=== PATIENT | male | born 1975 | race Caucasian/White ===

== ENCOUNTER 2017-08-14 19:19 | Emergency (ER) | payer MEDICAID ==
[2017-08-14 19:46] VITALS: BP 130/71
[2017-08-14] MEDS ORDERED: diphenhydrAMINE 50 MG/ML SDV ONE (20:03)
--- NOTE | 2017-08-14 21:24 | EDM.PDOC ---
ED HPI GENERAL MEDICAL PROBLEM - General Chief Complaint: Upper Extremity Injury/Pain Stated Complaint: laceration to palm Time Seen by Provider: 08/14/17 19:44 Source of Information: Reports: Patient History Limitations: Reports: No Limitations - History of Present Illness INITIAL COMMENTS - FREE TEXT/NARRATIVE: Pt. presents to ER with complaints of laceration to palm of his L hand. Pt. states that he was doing woodworking and cut it with a razorblade accidentally. Pt. states that his tetanus is UTD. Denies injury other what is isolated to L hand. Onset: Today Onset Date: 08/14/17 Onset Time: 19:00 Location: Reports: Upper Extremity, Left - Related Data Allergies Allergy/AdvReac Type Severity Reaction Status Date / Time lidocaine Allergy Rash Verified 08/14/17 19:40 Home Meds: Home Meds Magnesium Oxide [Mag-Oxide] 400 mg PO BIDAC #4 tablet 07/03/13 [Rx] Echinacea 500 mg PO DAILY 11/23/13 [History] FLUoxetine [PROzac] 20 mg PO DAILY 11/23/13 [History] Gabapentin [Gabapentin] 400 mg PO TID 11/23/13 [History] Gabapentin [Neurontin] 800 mg PO TID #42 tab 11/23/13 [Rx] Glucosamine/Msm/Chondroitin A [Ghqhpvcdoog-Nbfemheej-TLZ Cplt] 1 each PO TID 12/02 [History] Indomethacin [Indocin] 50 mg PO TID PRN 11/23/13 [History] LORazepam [Ativan] 1 mg PO Q6H PRN 11/23/13 [History] Multivitamin [Multi Vitamin Daily] 1 each PO DAILY 11/23/13 [History] Potassium Gluconate [Potassium] 99 mg PO DAILY 11/23/13 [History] traZODone HCl [Trazodone HCl] 200 mg PO BEDTIME 11/23/13 [History] Past Medical History Cardiovascular History: Reports: Hypertension Musculoskeletal History: Reports: Gout Psychiatric History: Reports: ADHD Other Psychiatric History: ETOH addiction Social & Family History - Tobacco Use Smoking Status *Q: Current Every Day Smoker Years of Tobacco use: 25 Packs/Tins Daily: 0.7 - Alcohol Use Days Per Week of Alcohol Use: 0 Number of Drinks Per Day: 12 Total Drinks Per Week: 0 - Recreational Drug Use Recreational Drug Use: No Review of Systems - Review of Systems Review Of Systems: See Below Musculoskeletal: Reports: Hand Pain Skin: Reports: Wound Neurological: Denies: Paresthesia ED EXAM, GENERAL - Physical Exam Exam: See Below Exam Limited By: No Limitations General Appearance: Alert Extremities: Other (2.75 cm laceration to L thenar emminence.) ED TRAUMA EXTREMITY PROCEDURES - Laceration/Wound Repair Left Hand Lac/Wound Length In cm: 2.7 Appearance: Linear Distal NVT: Neuro & Vascular Intact Anesthetic Type: Local Local Anesthesia - Lidocaine (Xylocaine): Other (benadryl 100mg around the laceration) Local Anesthetic Volume: 2cc Skin Prep: Chlorhexidine (Hibiciens), Saline Exploration/Debridement/Repair: Wound Explored Closed With: Sutures Suture Size: 4-0 # of Sutures: 4 Suture Type: Nylon Sterile Dressing Applied: Nurse Tetanus Status Addressed: Yes Course - Vital Signs Last Recorded V/S: Last Vital Signs Temp 36.5 C 08/14/17 19:44 Pulse 96 08/14/17 19:44 Resp 16 08/14/17 19:44 BP 130/71 08/14/17 19:44 Pulse Ox 96 08/14/17 19:44 - Orders/Labs/Meds Meds: Medications Discontinued Medications Generic Name Dose Route Start Last Admin Trade Name Vitor PRN Reason Stop Dose Admin Diphenhydramine HCl 100 mg 08/14/17 20:03 08/14/17 20:09 Benadryl .XX 08/14/17 20:04 100 mg ONETIME ONE Administration Departure - Departure Time of Disposition: 20:28 Disposition: Home, Self-Care 01 Condition: Good Clinical Impression: Laceration - Discharge Information Instructions: Laceration Care, Adult Referrals: Robel Taylor MD [Primary Care Provider] - Forms: ED Department Discharge Additional Instructions: Sutures out in 10-12 days. Keep dry for 24 hours. Keep open to air as much as possible. If you think the area is going to get dirty, keep covered. Return if redness, swelling, or discharge from the area.
== END 2017-08-14 20:33 | disposition home or self-care (01) ==
LOC: VM.ED 19:19
DX: S61.412A Laceration without foreign body of left hand, initial encounter (principal); I10 Essential (primary) hypertension; Z79.899 Other long term (current) drug therapy; F17.210 Nicotine dependence, cigarettes, uncomplicated; Z88.4 Allergy status to anesthetic agent; W26.8XXA Contact with other sharp object(s), not elsewhere classified, initial encounter
CPT/HCPCS: 12001; 12002; 99283; J1200

== ENCOUNTER 2017-12-29 12:13 | Observation (INO) | payer MEDICAID ==
[2017-12-29] MEDS ORDERED: Sodium Chloride 0.9% 1,000 ML IV ONE (12:28)
[2017-12-29 13:14] LABS: CHLORIDE,CL 99 mmol/L (98-107); SODIUM,NA 135 mmol/L (136-145)
[2017-12-29] MEDS: Lactated Ringers 1,000 ML IV SCH (19:31)
[2017-12-29] MEDS: LORazepam 1 MG Tab PO PRN (20:44)
[2017-12-29] MEDS: Multivitamin, Stress Formula with Zinc Tab PO SCH (20:44)
[2017-12-30] MEDS: LORazepam 1 MG Tab PO PRN (02:44)
[2017-12-30] MEDS: Lactated Ringers 1,000 ML IV SCH (05:30)
--- NOTE | 2017-12-30 06:30 | EDM.PDOC ---
ED HPI GENERAL MEDICAL PROBLEM - General Chief Complaint: General Stated Complaint: ER VISIT Time Seen by Provider: 12/29/17 12:13 Source of Information: Reports: Patient History Limitations: Reports: No Limitations - History of Present Illness INITIAL COMMENTS - FREE TEXT/NARRATIVE: Pt. is going through a breakup with his girlfriend. For the past several weeks, he has been living in either hotels or his vehicle. He has been staying at his parent's home since Saturday, and the pt. disappeared from the residence. Law enforcement was contacted. Pt. apparently wandered away from his parents home. He came across a santoro who contacted law enforcement. Pt. was cooperative. He was brought to the ER for evaluation. He was acutely confused and unable to recall the events of the day. He states that he has been binge drinking for the past 4 days. He has a longstanding history of alcoholism and he states he just recently relapsed. He was last seen in the clinic on . Pt. was compliant at that time, but stopped taking all of his medications in Aug. He was in possession of a small amount of Vyvanse, lorazepam, and lexapro. He is not sure if he took these medications or not yesterday (he is no longer prescribed lexapro). He states that he did fall on Saturday sustaining an abrasion to his L lateral face. Onset Date: 12/29/17 Location: Reports: Generalized - Related Data Allergies Allergy/AdvReac Type Severity Reaction Status Date / Time bee venom protein (honey bee) Allergy Anaphylactic Verified 12/29/17 12:41 Shock lidocaine Allergy Rash Verified 12/29/17 12:41 Home Meds: Home Meds Glucosamine/Msm/Chondroitin A [Ecjdanoccal-Fckisdhwt-USE Cplt] 1 each PO TID 12/02 [History] LORazepam [Ativan] 1 mg PO Q6H PRN 11/23/13 [History] Multivitamin [Multi Vitamin Daily] 1 each PO DAILY 11/23/13 [History] B Complex With Vitamin C [Vitamin B-Complex & C] 1 each PO DAILY 12/29/17 [ History] EPINEPHrine [Epipen] 0.3 mg IM ASDIRECTED PRN 12/29/17 [History] Folic Acid 1 mg PO DAILY 12/29/17 [History] Magnesium Chloride [Mag-64] 64 mg PO DAILY 12/29/17 [History] OLANZapine [Zyprexa] 15 mg PO BEDTIME 12/29/17 [History] rOPINIRole HCl [Requip] 0.25 mg PO BEDTIME 12/29/17 [History] Past Medical History Cardiovascular History: Reports: Hypertension Gastrointestinal History: Reports: Other (See Below) Other Gastrointestinal History: fatty liver Musculoskeletal History: Reports: Gout, Other (See Below) Other Musculoskeletal History: restless legs, pain of left shoulder Neurological History: Reports: Seizure, Other (See Below) Other Neuro History: mild cognitive impairment, neuroma, durg induced seizure, epilepsy, facial tic, neuroma Psychiatric History: Reports: ADD, Addiction Other Psychiatric History: ETOH addiction, insomnia Endocrine/Metabolic History: Reports: Other (See Below) Other Endocrine/Metabolic History: hyperglycemia Hematologic History: Reports: Anemia, Hemochromatosis, Other (See Below) Other Hematologic History: leukocytopenia - Past Surgical History Cardiovascular Surgical History: Reports: None Musculoskeletal Surgical History: Reports: None Social & Family History - Family History Family Medical History: Noncontributory - Tobacco Use Smoking Status *Q: Current Every Day Smoker Years of Tobacco use: 15 Packs/Tins Daily: 0.5 Used Tobacco, but Quit: No - Caffeine Use Caffeine Use: Reports: Coffee - Alcohol Use Days Per Week of Alcohol Use: 5 Number of Drinks Per Day: 4 Total Drinks Per Week: 20 - Recreational Drug Use Recreational Drug Use: No ED ROS GENERAL - Review of Systems Review Of Systems: See Below Constitutional: Reports: No Symptoms HEENT: Reports: No Symptoms Respiratory: Reports: No Symptoms Cardiovascular: Reports: No Symptoms Endocrine: Reports: No Symptoms GI/Abdominal: Reports: No Symptoms : Reports: No Symptoms Musculoskeletal: Reports: No Symptoms Skin: Reports: No Symptoms Neurological: Reports: Confusion Psychiatric: Reports: Agitation, Confusion Hematologic/Lymphatic: Reports: No Symptoms Immunologic: Reports: No Symptoms ED EXAM, GENERAL - Physical Exam Exam: See Below Exam Limited By: No Limitations General Appearance: Alert, WD/WN, No Apparent Distress Eye Exam: Bilateral Eye: EOMI, Normal Fundi, Normal Inspection, PERRL Ears: Normal External Exam, Normal Canal, Hearing Grossly Normal, Normal TMs Ear Exam: Bilateral Ear: Auricle Normal, Canal Normal, TM normal Nose: Normal Inspection, Normal Mucosa, No Blood Throat/Mouth: Normal Inspection, Normal Lips, Normal Teeth, Normal Gums, Normal Oropharynx, Normal Voice, No Airway Compromise Head: Atraumatic, Normocephalic, Other (abrasion from fall to L lateral orbital area) Neck: Normal Inspection, Supple, Non-Tender, Full Range of Motion Respiratory/Chest: No Respiratory Distress, Lungs Clear, Normal Breath Sounds, No Accessory Muscle Use, Chest Non-Tender Cardiovascular: Normal Peripheral Pulses, Regular Rate, Rhythm, No Edema, No Gallop, No JVD, No Murmur, No Rub Peripheral Pulses: 4+: Radial (L), Radial (R) GI/Abdominal: Normal Bowel Sounds, Soft, Non-Tender, No Organomegaly, No Distention, No Abnormal Bruit, No Mass (Male) Exam: Deferred Rectal (Males) Exam: Deferred Back Exam: Normal Inspection, Full Range of Motion Extremities: Normal Range of Motion, Non-Tender, No Pedal Edema, Normal Capillary Refill, Other (numerous healing lacerations to lower legs, pt. states from accidental glass cut.) Neurological: CN II-XII Intact, Normal Gait, Normal Reflexes, No Motor/Sensory Deficits, Confused, Disoriented Psychiatric: Anxious Skin Exam: Warm, Dry, Intact, Normal Color, No Rash Lymphatic: No Adenopathy EKG INTERPRETATION Rhythm: NSR [place]: Normal P-Wave: Present QRS: Normal ST-T: Normal QT: Normal Course - Vital Signs Last Recorded V/S: Last Vital Signs Temp 37.1 C 12/30/17 05:34 Pulse 75 12/30/17 05:34 Resp 18 12/30/17 05:34 BP 124/77 12/30/17 05:34 Pulse Ox 97 12/30/17 05:34 - Orders/Labs/Meds Orders: Active Orders 24 hr Category Date Time Status Patient Status [ADT] Routine ADT 12/29/17 14:04 Active Head wo Cont [CT] Stat Exams 12/29/17 12:23 Taken CULTURE BLOOD [BC] Stat Lab 12/29/17 13:30 Received CULTURE BLOOD [BC] Stat Lab 12/29/17 13:30 Received DRUG SCREEN, URINE [URCHEM] Stat Lab 12/29/17 12:59 Ordered MISC TEST Stat Lab 12/29/17 12:59 Received Blood Culture x2 Reflex Set [OM.PC] Stat Oth 12/29/17 12:25 Ordered Medication Orders Folic Acid (Folic Acid) 1 mg PO DAILY [facility] Lactated Ringer's (Ringers, Lactated) 1,000 mls @ 100 mls/hr IV ASDIRECTED TIM Last Admin: 12/30/17 05:30 Dose: 100 mls/hr Infusion: 12/30/17 05:30 Dose: 100 mls/hr Admin: 12/29/17 19:31 Dose: 100 mls/hr Lorazepam (Ativan) 1 mg PO Q6H PRN PRN Reason: Anxiety Last Admin: 12/30/17 02:44 Dose: 1 mg Admin: 12/29/17 20:44 Dose: 1 mg Magnesium Chloride (Mag-64) 64 mg PO DAILY [facility] Non-Formulary Medication (Glucosamine/Msm/Chondroitin A [Glucosamine-Chondroit- Msm Cplt]) 1 each PO TID TIM Vitamin B Complex (Balanced B-50) 1 each PO DAILY TIM Vitamin B Complex/Vit C/Vit E/Zinc (Stress Formula With Zinc) 1 tab PO DAILY [facility] Last Admin: 12/29/17 20:44 Dose: 1 tab Labs: Laboratory Tests 12/29/17 12/29/17 12/29/17 Range/Units 12:35 12:35 12:35 WBC 9.9 (4.0-10.0) x10^3/uL RBC 4.41 L (4.5-6.0) x10^6/uL Hgb 15.3 D (14.0-18.0) g/dL Hct 43.6 (40.0-52.0) % MCV 98.9 H D (78.0-93.0) fL MCH 34.7 H (26.0-32.0) pg MCHC 35.1 (32.0-36.0) g/dL RDW Coeff of [place] 13.0 (10.0-15.0) % Plt Count 184 (130-400) x10^3/uL Neut % (Auto) 80.9 H (50.0-80.0) % Lymph % (Auto) 10.9 L (25.0-50.0) % [place] % (Auto) 8.0 (2.0-11.0) % Eos % (Auto) 0.1 (0.0-4.0) % Baso % (Auto) 0.1 L (0.2-1.2) % PT 10.2 (9.6-11.4) SEC INR 1.0 L (2.0-3.5) Sodium 135 L (136-145) mmol/L Potassium 4.1 (3.5-5.1) mmol/L Chloride 99 (98-107) mmol/L Carbon Dioxide 23 (21-32) mmol/L Anion Gap 17.1 (10-20) mmol/L BUN 26 H (7-18) mg/dL Creatinine 1.3 (0.70-1.30) mg/dL Est Cr Clr Drug Dosing TNP Estimated GFR (MDRD) > 60 Glucose 82 (74-106) mg/dL Lactic Acid (0.4-2.0) mmol/L Calcium 9.3 (8.5-10.1) mg/dL Corrected Calcium 8.58 (8.5-10.1) mg/dL Phosphorus 4.6 (2.6-4.7) mg/dL Magnesium 1.8 (1.8-2.4) mg/dL Total Bilirubin 2.5 H (0.2-1.0) mg/dL AST 486 H (15-37) U/L ALT 208 H (16-63) U/L Alkaline Phosphatase 145 H (46-116) U/L Troponin I < 0.017 (<=0.056) ng/mL C-Reactive Protein 3.4 H (<=0.9) mg/dL Total Protein 8.6 H (6.4-8.2) g/dL Albumin 4.9 (3.4-5.0) g/dL Globulin 3.7 Albumin/Globulin Ratio 1.32 TSH, Ultra Sensitive 2.625 (0.358-3.74) uIU/mL Urine Color (YELLOW) Urine Appearance (CLEAR) Urine pH (5.0-8.0) Ur Specific [place] Urine Protein (NEGATIVE) mg/dL Urine Glucose (UA) (NEGATIVE) mg/dL Urine Ketones (NEGATIVE) mg/dL Urine Occult Blood (NEGATIVE) Urine Nitrite (NEGATIVE) Urine Bilirubin (NEGATIVE) Urine Urobilinogen (0.2) EU/dL Ur Leukocyte Esterase (NEGATIVE) Urine RBC (NOT SEEN) /HPF Urine WBC (NOT SEEN) /HPF Ur Squamous Epith Cells (NEGATIVE) /HPF Amorphous Sediment Urine Bacteria (NEGATIVE) /HPF Hyaline Casts (NEGATIVE) /HPF Urine Mucus (NEGATIVE) /LPF Urine Opiates Screen (NEAGTIVE) Ur Buprenorphine Scrn (NEGATIVE) Ur Oxycodone Screen (NEGATIVE) Urine Methadone Screen (NEGATIVE) Ur Barbiturates Screen (NEGATIVE) Ur Tricyclics Screen (NEGATIVE) Ur Amphetamine Screen (NEGATIVE) U Methamphetamines Scrn (NEGATIVE) Urine MDMA Screen (NEGATIVE) U Benzodiazepines Scrn (NEGATIVE) U Cocaine Metab Screen (NEGATIVE) U Marijuana (THC) Screen (NEGATIVE) Ethyl Alcohol (0-3) mg/dL 12/29/17 12/29/17 12/29/17 Range/Units 12:35 12:35 12:59 WBC (4.0-10.0) x10^3/uL RBC (4.5-6.0) x10^6/uL Hgb (14.0-18.0) g/dL Hct (40.0-52.0) % MCV (78.0-93.0) fL MCH (26.0-32.0) pg MCHC (32.0-36.0) g/dL RDW Coeff of [place] (10.0-15.0) % Plt Count (130-400) x10^3/uL Neut % (Auto) (50.0-80.0) % Lymph % (Auto) (25.0-50.0) % [place] % (Auto) (2.0-11.0) % Eos % (Auto) (0.0-4.0) % Baso % (Auto) (0.2-1.2) % PT (9.6-11.4) SEC INR (2.0-3.5) Sodium (136-145) mmol/L Potassium (3.5-5.1) mmol/L Chloride (98-107) mmol/L Carbon Dioxide (21-32) mmol/L Anion Gap (10-20) mmol/L BUN (7-18) mg/dL Creatinine (0.70-1.30) mg/dL Est Cr Clr Drug Dosing Estimated GFR (MDRD) Glucose (74-106) mg/dL Lactic Acid 1.4 (0.4-2.0) mmol/L Calcium (8.5-10.1) mg/dL Corrected Calcium (8.5-10.1) mg/dL Phosphorus (2.6-4.7) mg/dL Magnesium (1.8-2.4) mg/dL Total Bilirubin (0.2-1.0) mg/dL AST (15-37) U/L ALT (16-63) U/L Alkaline Phosphatase (46-116) U/L Troponin I (<=0.056) ng/mL C-Reactive Protein (<=0.9) mg/dL Total Protein (6.4-8.2) g/dL Albumin (3.4-5.0) g/dL Globulin Albumin/Globulin Ratio TSH, Ultra Sensitive (0.358-3.74) uIU/mL Urine Color Dark yellow H (YELLOW) Urine Appearance Slightly cloudy H (CLEAR) Urine pH 5.5 (5.0-8.0) Ur Specific [place] 1.010 Urine Protein 30 H (NEGATIVE) mg/dL Urine Glucose (UA) Negative (NEGATIVE) mg/dL Urine Ketones Trace H (NEGATIVE) mg/dL Urine Occult Blood Moderate H (NEGATIVE) Urine Nitrite Negative (NEGATIVE) Urine Bilirubin Small H (NEGATIVE) Urine Urobilinogen 0.2 (0.2) EU/dL Ur Leukocyte Esterase Negative (NEGATIVE) Urine RBC 0-5 (NOT SEEN) /HPF Urine WBC 0-5 (NOT SEEN) /HPF Ur Squamous Epith Cells Not seen (NEGATIVE) /HPF Amorphous Sediment Few Urine Bacteria Few H (NEGATIVE) /HPF Hyaline Casts Moderate H (NEGATIVE) /HPF Urine Mucus Moderate H (NEGATIVE) /LPF Urine Opiates Screen (NEAGTIVE) Ur Buprenorphine Scrn (NEGATIVE) Ur Oxycodone Screen (NEGATIVE) Urine Methadone Screen (NEGATIVE) Ur Barbiturates Screen (NEGATIVE) Ur Tricyclics Screen (NEGATIVE) Ur Amphetamine Screen (NEGATIVE) U Methamphetamines Scrn (NEGATIVE) Urine MDMA Screen (NEGATIVE) U Benzodiazepines Scrn (NEGATIVE) U Cocaine Metab Screen (NEGATIVE) U Marijuana (THC) Screen (NEGATIVE) Ethyl Alcohol < 3 (0-3) mg/dL 12/29/17 Range/Units 12:59 WBC (4.0-10.0) x10^3/uL RBC (4.5-6.0) x10^6/uL Hgb (14.0-18.0) g/dL Hct (40.0-52.0) % MCV (78.0-93.0) fL MCH (26.0-32.0) pg MCHC (32.0-36.0) g/dL RDW Coeff of [place] (10.0-15.0) % Plt Count (130-400) x10^3/uL Neut % (Auto) (50.0-80.0) % Lymph % (Auto) (25.0-50.0) % [place] % (Auto) (2.0-11.0) % Eos % (Auto) (0.0-4.0) % Baso % (Auto) (0.2-1.2) % PT (9.6-11.4) SEC INR (2.0-3.5) Sodium (136-145) mmol/L Potassium (3.5-5.1) mmol/L Chloride (98-107) mmol/L Carbon Dioxide (21-32) mmol/L Anion Gap (10-20) mmol/L BUN (7-18) mg/dL Creatinine (0.70-1.30) mg/dL Est Cr Clr Drug Dosing Estimated GFR (MDRD) Glucose (74-106) mg/dL Lactic Acid (0.4-2.0) mmol/L Calcium (8.5-10.1) mg/dL Corrected Calcium (8.5-10.1) mg/dL Phosphorus (2.6-4.7) mg/dL Magnesium (1.8-2.4) mg/dL Total Bilirubin (0.2-1.0) mg/dL AST (15-37) U/L ALT (16-63) U/L Alkaline Phosphatase (46-116) U/L Troponin I (<=0.056) ng/mL C-Reactive Protein (<=0.9) mg/dL Total Protein (6.4-8.2) g/dL Albumin (3.4-5.0) g/dL Globulin Albumin/Globulin Ratio TSH, Ultra Sensitive (0.358-3.74) uIU/mL Urine Color (YELLOW) Urine Appearance (CLEAR) Urine pH (5.0-8.0) Ur Specific [place] Urine Protein (NEGATIVE) mg/dL Urine Glucose (UA) (NEGATIVE) mg/dL Urine Ketones (NEGATIVE) mg/dL Urine Occult Blood (NEGATIVE) Urine Nitrite (NEGATIVE) Urine Bilirubin (NEGATIVE) Urine Urobilinogen (0.2) EU/dL Ur Leukocyte Esterase (NEGATIVE) Urine RBC (NOT SEEN) /HPF Urine WBC (NOT SEEN) /HPF Ur Squamous Epith Cells (NEGATIVE) /HPF Amorphous Sediment Urine Bacteria (NEGATIVE) /HPF Hyaline Casts (NEGATIVE) /HPF Urine Mucus (NEGATIVE) /LPF Urine Opiates Screen Negative (NEAGTIVE) Ur Buprenorphine Scrn Negative (NEGATIVE) Ur Oxycodone Screen Negative (NEGATIVE) Urine Methadone Screen Negative (NEGATIVE) Ur Barbiturates Screen Negative (NEGATIVE) Ur Tricyclics Screen Negative (NEGATIVE) Ur Amphetamine Screen Positive H (NEGATIVE) U Methamphetamines Scrn Negative (NEGATIVE) Urine MDMA Screen Negative (NEGATIVE) U Benzodiazepines Scrn Negative (NEGATIVE) U Cocaine Metab Screen Negative (NEGATIVE) U Marijuana (THC) Screen Negative (NEGATIVE) Ethyl Alcohol (0-3) mg/dL Meds: Medications Generic Name Dose Route Start Last Admin Trade Name Freq PRN Reason Stop Dose Admin Folic Acid 1 mg 12/30/17 08:00 Folic Acid PO DAILY TIM Lactated Ringer's 1,000 mls @ 100 mls/hr 12/29/17 19:00 12/30/17 05:30 Ringers, Lactated IV 100 mls/hr ASDIRECTED TIM Administration Lorazepam 1 mg 12/29/17 18:56 12/30/17 02:44 Ativan PO 1 mg Q6H PRN Administration Anxiety Magnesium Chloride 64 mg 12/30/17 08:00 Mag-64 PO DAILY [facility] Non-Formulary Medication 1 each 12/29/17 20:00 Glucosamine/Msm/Chondroitin A [Nsghtezoxmx-Clpdqbids-Cfj Cplt] PO TID [facility] Vitamin B Complex 1 each 12/30/17 08:00 Balanced B-50 PO DAILY [facility] Vitamin B Complex/Vit C/Vit E/Zinc 1 tab 12/29/17 19:30 12/29/17 20:44 Stress Formula With Zinc PO 1 tab DAILY [facility] Administration Discontinued Medications Generic Name Dose Route Start Last Admin Trade Name Freq PRN Reason Stop Dose Admin Sodium Chloride 1,000 mls @ 1,000 mls/hr 12/29/17 12:28 12/29/17 12:59 Normal Saline IV 12/29/17 13:27 1,000 mls/hr .BOLUS ONE Administration - Radiology Interpretation Free Text/Narrative:: CT brain is negative Departure - Departure Time of Disposition: 14:30 Disposition: Refer to Observation Clinical Impression: Dehydration - Discharge Information - My Orders Last 24 Hours: My Active Orders 12/29/17 12:23 Head wo Cont [CT] Stat 12/29/17 12:25 Blood Culture x2 Reflex Set [OM.PC] Stat 12/29/17 12:59 DRUG SCREEN, URINE [URCHEM] Stat MISC TEST Stat 12/29/17 13:30 CULTURE BLOOD [BC] Stat CULTURE BLOOD [BC] Stat 12/29/17 14:04 Patient Status [ADT] Routine - Assessment/Plan Last 24 Hours: My Active Orders 12/29/17 12:23 Head wo Cont [CT] Stat 12/29/17 12:25 Blood Culture x2 Reflex Set [OM.PC] Stat 12/29/17 12:59 DRUG SCREEN, URINE [URCHEM] Stat MISC TEST Stat 12/29/17 13:30 CULTURE BLOOD [BC] Stat CULTURE BLOOD [BC] Stat 12/29/17 14:04 Patient Status [ADT] Routine Assessment:: Acute delirium, dehydration Plan: We will admit the pt. observation. Will continue LR overnight. At this time, we will not restart his zyprexa or requip until his confusion is improved. It is likely the pt. has been drinking again for longer than 4 days. Will monitor for agitation. GGT, CMP, and CBC in the AM. He is a code level 1.
[2017-12-30 07:33] LABS: CHLORIDE,CL 103 mmol/L (98-107); SODIUM,NA 137 mmol/L (136-145)
[2017-12-30] MEDS: Multivitamin, Stress Formula with Zinc Tab PO SCH (07:52)
[2017-12-30] MEDS ORDERED: Folic Acid 1 MG Tab PO SCH (08:00)
[2017-12-30] MEDS ORDERED: Vitamin B Complex Tab.ER PO SCH (08:00)
[2017-12-30] MEDS ORDERED: Magnesium Chloride 64 MG Tab.ER PO SCH (08:00)
--- NOTE | 2017-12-30 08:41 | PCM.DCSUM1 ---
Discharge Summary - Hospital Course HPI Initial Comments: 42 yo male patient was admitted through the ED yesterday. [employer], pt. is going through a breakup with his girlfriend. For the past several weeks, he has been living in either hotels or his vehicle. He has been staying at his parent' s home since Saturday, and the pt. disappeared from the residence. Law enforcement was contacted. Pt. apparently wandered away from his parents home. He came across a santoro who contacted law enforcement. Pt. was cooperative. He was brought to the ER for evaluation. He was acutely confused and unable to recall the events of the day. He states that he has been binge drinking for the past 4 days. He has a longstanding history of alcoholism and he states he just recently relapsed. He was last seen in the clinic on . Pt. was compliant at that time, but stopped taking all of his medications in Aug. He was in possession of a small amount of Vyvanse, lorazepam, and lexapro. He is not sure if he took these medications or not yesterday (he is no longer prescribed lexapro). He states that he did fall on Saturday sustaining an abrasion to his L lateral face. - Discharge Data Discharge Date: 12/30/17 Discharge Disposition: Home, Self-Care 01 Condition: Good - Discharge Diagnosis/Problem(s) (1) Acute delirium SNOMED Code(s): 2095266, 1211697 ICD Code: R41.0 - DISORIENTATION, UNSPECIFIED Status: Resolved Priority: Medium Current Visit: Yes Onset Date: ~12/29/17 (2) Dehydration SNOMED Code(s): 47324199 ICD Code: E86.0 - DEHYDRATION Status: Resolved Priority: Medium Current Visit: Yes Onset Date: ~12/29/17 - Patient Summary/Data Operative Procedure(s) Performed: None Labs Pending at D/C: None Recommended Follow-up Testing/Procedures: Recheck Hepatic Panel with next PCP visit Planned Operative Procedure(s) after DC: None Hospital Course: Patient remained hemodynamically stable and afebrile. No issues with withdrawal symptoms. Patient rested comfortably. No issues with uncontrolled pain. Patient able to urinate and void ok. Tolerated diet fine. No issues with seizures. - Patient Instructions Diet: Heart Healthy Diet Activity: Rest and Relax Today Driving: Do Not Drive Showering/Bathing: May Shower Notify Provider of: Fever, Nausea and/or Vomiting - Discharge Plan Prescriptions/Med Rec: OLANZapine [Zyprexa] 1 tab PO BEDTIME 30 Days #30 tablet Home Medications: Home Meds Glucosamine/Msm/Chondroitin A [Lxoacbhdmjx-Oinbljafs-YFJ Cplt] 1 each PO TID 12/02 [History] LORazepam [Ativan] 1 mg PO Q6H PRN 11/23/13 [History] Multivitamin [Multi-Vitamin Daily] 1 each PO DAILY 11/23/13 [History] B Complex With Vitamin C [Vitamin B-Complex & C] 1 each PO DAILY 12/29/17 [ History] EPINEPHrine [Epipen 2-Jaime] 0.3 mg IM ASDIRECTED PRN 12/29/17 [History] Folic Acid 1 mg PO DAILY 12/29/17 [History] Magnesium Chloride [Mag-64] 64 mg PO DAILY 12/29/17 [History] rOPINIRole HCl [Requip] 0.25 mg PO BEDTIME 12/29/17 [History] OLANZapine [Zyprexa] 1 tab PO BEDTIME 30 Days #30 tablet 12/30/17 [Rx] Patient Handouts: Delirium, Rehydration, Adult Referrals: Robel Taylor MD [Primary Care Provider] - - Discharge Summary/Plan Comment DC Time >30 min.: No Discharge Summary/Plan Comment: Patient will be discharge home today. Patient needs a follow up with PCP in the next week as he has missed the last couple of appointments. No changes with home medications. Will give patient a refill of Zyprexa as he is out of this medication. STOP drinking alcohol. Needs outpatient CD program. - General Info Date of Service: 12/30/17 Subjective Update: Patient offers no specific complaints today. He states he is doing well. He would like to go home today. No issues with urination or BM's. Tolerating diet ok. No focal neurological complaints. Functional Status: Reports: Pain Controlled, Tolerating Diet, Ambulating, Urinating - Review of Systems General: Denies: Fever, Chills Pulmonary: Denies: Shortness of Breath, Cough Cardiovascular: Denies: Chest Pain, Palpitations Gastrointestinal: Denies: Abdominal Pain, Nausea, Vomiting Skin: Reports: No Symptoms Neurological: Reports: No Symptoms. Denies: Dizziness, Headache - Patient Data Vitals - Most Recent: Last Vital Signs Temp 37.1 C 12/30/17 05:34 Pulse 75 12/30/17 05:34 Resp 18 12/30/17 05:34 BP 124/77 12/30/17 05:34 Pulse Ox 97 12/30/17 05:34 Weight - Most Recent: 62.766 kg I&O - Last 24 hours: Intake & Output 12/29/17 12/30/17 12/30/17 22:59 06:59 14:59 Intake Total 2280 3460 Output Total 3150 Balance 2280 310 Lab Results - Last 24 hrs: Laboratory Results - last 24 hr 12/29/17 12/29/17 12/29/17 Range/Units 12:35 12:35 12:35 WBC 9.9 (4.0-10.0) x10^3/uL RBC 4.41 L (4.5-6.0) x10^6/uL Hgb 15.3 D (14.0-18.0) g/dL Hct 43.6 (40.0-52.0) % MCV 98.9 H D (78.0-93.0) fL MCH 34.7 H (26.0-32.0) pg MCHC 35.1 (32.0-36.0) g/dL RDW Coeff of Shaneka 13.0 (10.0-15.0) % Plt Count 184 (130-400) x10^3/uL Neut % (Auto) 80.9 H (50.0-80.0) % Lymph % (Auto) 10.9 L (25.0-50.0) % [place] % (Auto) 8.0 (2.0-11.0) % Eos % (Auto) 0.1 (0.0-4.0) % Baso % (Auto) 0.1 L (0.2-1.2) % PT 10.2 (9.6-11.4) SEC INR 1.0 L (2.0-3.5) Sodium 135 L (136-145) mmol/L Potassium 4.1 (3.5-5.1) mmol/L Chloride 99 (98-107) mmol/L Carbon Dioxide 23 (21-32) mmol/L Anion Gap 17.1 (10-20) mmol/L BUN 26 H (7-18) mg/dL Creatinine 1.3 (0.70-1.30) mg/dL Est Cr Clr Drug Dosing TNP Estimated GFR (MDRD) > 60 Glucose 82 (74-106) mg/dL Lactic Acid (0.4-2.0) mmol/L Calcium 9.3 (8.5-10.1) mg/dL Corrected Calcium 8.58 (8.5-10.1) mg/dL Phosphorus 4.6 (2.6-4.7) mg/dL Magnesium 1.8 (1.8-2.4) mg/dL Total Bilirubin 2.5 H (0.2-1.0) mg/dL AST 486 H (15-37) U/L ALT 208 H (16-63) U/L Alkaline Phosphatase 145 H (46-116) U/L Troponin I < 0.017 (<=0.056) ng/mL C-Reactive Protein 3.4 H (<=0.9) mg/dL Total Protein 8.6 H (6.4-8.2) g/dL Albumin 4.9 (3.4-5.0) g/dL Globulin 3.7 Albumin/Globulin Ratio 1.32 TSH, Ultra Sensitive 2.625 (0.358-3.74) uIU/mL Urine Color (YELLOW) Urine Appearance (CLEAR) Urine pH (5.0-8.0) Ur Specific [place] Urine Protein (NEGATIVE) mg/dL Urine Glucose (UA) (NEGATIVE) mg/dL Urine Ketones (NEGATIVE) mg/dL Urine Occult Blood (NEGATIVE) Urine Nitrite (NEGATIVE) Urine Bilirubin (NEGATIVE) Urine Urobilinogen (0.2) EU/dL Ur Leukocyte Esterase (NEGATIVE) Urine RBC (NOT SEEN) /HPF Urine WBC (NOT SEEN) /HPF Ur Squamous Epith Cells (NEGATIVE) /HPF Amorphous Sediment Urine Bacteria (NEGATIVE) /HPF Hyaline Casts (NEGATIVE) /HPF Urine Mucus (NEGATIVE) /LPF Urine Opiates Screen (NEAGTIVE) Ur Buprenorphine Scrn (NEGATIVE) Ur Oxycodone Screen (NEGATIVE) Urine Methadone Screen (NEGATIVE) Ur Barbiturates Screen (NEGATIVE) Ur Tricyclics Screen (NEGATIVE) Ur Amphetamine Screen (NEGATIVE) U Methamphetamines Scrn (NEGATIVE) Urine MDMA Screen (NEGATIVE) U Benzodiazepines Scrn (NEGATIVE) U Cocaine Metab Screen (NEGATIVE) U Marijuana (THC) Screen (NEGATIVE) Ethyl Alcohol (0-3) mg/dL 12/29/17 12/29/17 12/29/17 Range/Units 12:35 12:35 12:59 WBC (4.0-10.0) x10^3/uL RBC (4.5-6.0) x10^6/uL Hgb (14.0-18.0) g/dL Hct (40.0-52.0) % MCV (78.0-93.0) fL MCH (26.0-32.0) pg MCHC (32.0-36.0) g/dL RDW Coeff of Shaneka (10.0-15.0) % Plt Count (130-400) x10^3/uL Neut % (Auto) (50.0-80.0) % Lymph % (Auto) (25.0-50.0) % [place] % (Auto) (2.0-11.0) % Eos % (Auto) (0.0-4.0) % Baso % (Auto) (0.2-1.2) % PT (9.6-11.4) SEC INR (2.0-3.5) Sodium (136-145) mmol/L Potassium (3.5-5.1) mmol/L Chloride (98-107) mmol/L Carbon Dioxide (21-32) mmol/L Anion Gap (10-20) mmol/L BUN (7-18) mg/dL Creatinine (0.70-1.30) mg/dL Est Cr Clr Drug Dosing Estimated GFR (MDRD) Glucose (74-106) mg/dL Lactic Acid 1.4 (0.4-2.0) mmol/L Calcium (8.5-10.1) mg/dL Corrected Calcium (8.5-10.1) mg/dL Phosphorus (2.6-4.7) mg/dL Magnesium (1.8-2.4) mg/dL Total Bilirubin (0.2-1.0) mg/dL AST (15-37) U/L ALT (16-63) U/L Alkaline Phosphatase (46-116) U/L Troponin I (<=0.056) ng/mL C-Reactive Protein (<=0.9) mg/dL Total Protein (6.4-8.2) g/dL Albumin (3.4-5.0) g/dL Globulin Albumin/Globulin Ratio TSH, Ultra Sensitive (0.358-3.74) uIU/mL Urine Color Dark yellow H (YELLOW) Urine Appearance Slightly cloudy H (CLEAR) Urine pH 5.5 (5.0-8.0) Ur Specific [place] 1.010 Urine Protein 30 H (NEGATIVE) mg/dL Urine Glucose (UA) Negative (NEGATIVE) mg/dL Urine Ketones Trace H (NEGATIVE) mg/dL Urine Occult Blood Moderate H (NEGATIVE) Urine Nitrite Negative (NEGATIVE) Urine Bilirubin Small H (NEGATIVE) Urine Urobilinogen 0.2 (0.2) EU/dL Ur Leukocyte Esterase Negative (NEGATIVE) Urine RBC 0-5 (NOT SEEN) /HPF Urine WBC 0-5 (NOT SEEN) /HPF Ur Squamous Epith Cells Not seen (NEGATIVE) /HPF Amorphous Sediment Few Urine Bacteria Few H (NEGATIVE) /HPF Hyaline Casts Moderate H (NEGATIVE) /HPF Urine Mucus Moderate H (NEGATIVE) /LPF Urine Opiates Screen (NEAGTIVE) Ur Buprenorphine Scrn (NEGATIVE) Ur Oxycodone Screen (NEGATIVE) Urine Methadone Screen (NEGATIVE) Ur Barbiturates Screen (NEGATIVE) Ur Tricyclics Screen (NEGATIVE) Ur Amphetamine Screen (NEGATIVE) U Methamphetamines Scrn (NEGATIVE) Urine MDMA Screen (NEGATIVE) U Benzodiazepines Scrn (NEGATIVE) U Cocaine Metab Screen (NEGATIVE) U Marijuana (THC) Screen (NEGATIVE) Ethyl Alcohol < 3 (0-3) mg/dL 12/29/17 12/30/17 12/30/17 Range/Units 12:59 06:15 06:15 WBC 4.9 (4.0-10.0) x10^3/uL RBC 3.71 L (4.5-6.0) x10^6/uL Hgb 12.8 L D (14.0-18.0) g/dL Hct 37.3 L (40.0-52.0) % MCV 100.5 H (78.0-93.0) fL MCH 34.5 H (26.0-32.0) pg MCHC 34.3 (32.0-36.0) g/dL RDW Coeff of Shaneka 12.7 (10.0-15.0) % Plt Count 137 (130-400) x10^3/uL Neut % (Auto) 59.5 (50.0-80.0) % Lymph % (Auto) 31.8 (25.0-50.0) % [place] % (Auto) 7.9 (2.0-11.0) % Eos % (Auto) 0.8 (0.0-4.0) % Baso % (Auto) 0.0 L (0.2-1.2) % PT (9.6-11.4) SEC INR (2.0-3.5) Sodium 137 (136-145) mmol/L Potassium 3.8 (3.5-5.1) mmol/L Chloride 103 (98-107) mmol/L Carbon Dioxide 24 (21-32) mmol/L Anion Gap 13.8 (10-20) mmol/L BUN 14 (7-18) mg/dL Creatinine 0.8 (0.70-1.30) mg/dL Est Cr Clr Drug Dosing 105.70 Estimated GFR (MDRD) > 60 Glucose 90 (74-106) mg/dL Lactic Acid (0.4-2.0) mmol/L Calcium 8.3 L (8.5-10.1) mg/dL Corrected Calcium 8.62 (8.5-10.1) mg/dL Phosphorus (2.6-4.7) mg/dL Magnesium (1.8-2.4) mg/dL Total Bilirubin 2.0 H (0.2-1.0) mg/dL AST 330 H (15-37) U/L ALT 188 H (16-63) U/L Alkaline Phosphatase 129 H (46-116) U/L Troponin I (<=0.056) ng/mL C-Reactive Protein (<=0.9) mg/dL Total Protein 7.2 (6.4-8.2) g/dL Albumin 3.6 (3.4-5.0) g/dL Globulin 3.6 Albumin/Globulin Ratio 1.00 TSH, Ultra Sensitive (0.358-3.74) uIU/mL Urine Color (YELLOW) Urine Appearance (CLEAR) Urine pH (5.0-8.0) Ur Specific [place] Urine Protein (NEGATIVE) mg/dL Urine Glucose (UA) (NEGATIVE) mg/dL Urine Ketones (NEGATIVE) mg/dL Urine Occult Blood (NEGATIVE) Urine Nitrite (NEGATIVE) Urine Bilirubin (NEGATIVE) Urine Urobilinogen (0.2) EU/dL Ur Leukocyte Esterase (NEGATIVE) Urine RBC (NOT SEEN) /HPF Urine WBC (NOT SEEN) /HPF Ur Squamous Epith Cells (NEGATIVE) /HPF Amorphous Sediment Urine Bacteria (NEGATIVE) /HPF Hyaline Casts (NEGATIVE) /HPF Urine Mucus (NEGATIVE) /LPF Urine Opiates Screen Negative (NEAGTIVE) Ur Buprenorphine Scrn Negative (NEGATIVE) Ur Oxycodone Screen Negative (NEGATIVE) Urine Methadone Screen Negative (NEGATIVE) Ur Barbiturates Screen Negative (NEGATIVE) Ur Tricyclics Screen Negative (NEGATIVE) Ur Amphetamine Screen Positive H (NEGATIVE) U Methamphetamines Scrn Negative (NEGATIVE) Urine MDMA Screen Negative (NEGATIVE) U Benzodiazepines Scrn Negative (NEGATIVE) U Cocaine Metab Screen Negative (NEGATIVE) U Marijuana (THC) Screen Negative (NEGATIVE) Ethyl Alcohol (0-3) mg/dL Med Orders - Current: Current Medications Folic Acid (Folic Acid) 1 mg PO DAILY [facility] Last Admin: 12/30/17 07:52 Dose: 1 mg Lactated Ringer's (Ringers, Lactated) 1,000 mls @ 100 mls/hr IV ASDIRECTED [facility] Last Admin: 12/30/17 05:30 Dose: 100 mls/hr Lorazepam (Ativan) 1 mg PO Q6H PRN PRN Reason: Anxiety Last Admin: 12/30/17 02:44 Dose: 1 mg Magnesium Chloride (Mag-64) 64 mg PO DAILY [facility] Last Admin: 12/30/17 07:52 Dose: 64 mg Non-Formulary Medication (Glucosamine/Msm/Chondroitin A [Glucosamine-Chondroit- Msm Cplt]) 1 each PO TID [facility] Vitamin B Complex (Balanced B-50) 1 each PO DAILY [facility] Last Admin: 12/30/17 07:52 Dose: 1 each Vitamin B Complex/Vit C/Vit E/Zinc (Stress Formula With Zinc) 1 tab PO DAILY [facility] Last Admin: 12/30/17 07:52 Dose: 1 tab Discontinued Medications Sodium Chloride (Normal Saline) 1,000 mls @ 1,000 mls/hr IV .BOLUS ONE Stop: 12/29/17 13:27 Last Admin: 12/29/17 12:59 Dose: 1,000 mls/hr - Exam General: Reports: Alert, Oriented, Cooperative, No Acute Distress Neck: Reports: Supple Lungs: Reports: Clear to Auscultation, Normal Respiratory Effort Cardiovascular: Reports: Regular Rate, Regular Rhythm, No Murmurs GI/Abdominal Exam: Normal Bowel Sounds, Soft, Non-Tender Skin: Reports: Warm, Dry, Intact Neurological: Reports: No New Focal Deficit *Q Meaningful Use (DIS) - VTE *Q VTE Mechanical Contraindications *Q: At Risk for Falls
[2017-12-30 09:56] VITALS: BP 127/80
[2017-12-30] MEDS ORDERED: Glucosamine 500 MG Cap PO SCH (12:00)
== END 2017-12-30 11:05 | disposition home or self-care (01) ==
LOC: VM.ED 12:13 → INTOOBSV 14:04 → VM.MS 14:04 → EEVIPCON 14:04
PROVIDERS: ADMIT Physician Assistant; ATTEND Physician Assistant
DX: R41.0 Disorientation, unspecified (principal); E86.0 Dehydration; I10 Essential (primary) hypertension; F17.200 Nicotine dependence, unspecified, uncomplicated; F10.20 Alcohol dependence, uncomplicated; Z79.899 Other long term (current) drug therapy; Z88.4 Allergy status to anesthetic agent; Z91.030 Bee allergy status
CPT/HCPCS: 36415; 70450; 80053; 80305; 81001; 82977; 83605; 83735; 84100; 84443; 84484; 85025; 85610; 86140; 87040; 93005; 99285; A9270; G0480; J7030; J7120

== ENCOUNTER 2020-06-25 16:47 | Emergency (ER) | payer MEDICAID ==
--- NOTE | 2020-06-25 17:22 | EDM.PDOC ---
ED HPI GENERAL MEDICAL PROBLEM - General Stated Complaint: FELL LANDED ON LEFT ARM Time Seen by Provider: 06/25/20 17:21 Source of Information: Reports: Patient History Limitations: Reports: No Limitations - History of Present Illness INITIAL COMMENTS - FREE TEXT/NARRATIVE: Patient comes emergency department today with complaints of left arm pain. Just prior to arrival the patient was ambulating and he has some kind of chronic problems with his right knee due to a nail gun injury many years ago. He had a sudden pain in his knee and he fell injuring his left forearm. He had no loss of conscious. He did not hit his head. There was no head neck or back pain. His right knee is not painful at this time. He complains of pain to his left forearm. He is really unable to explain exactly where the pain is. He thinks it is more on the distal end of the forearm. He denies any paresthesias to his hand. He denies any injury to his elbow humerus or shoulder. He denies any other injuries. No Covid exposure no Covid symptoms. Left Arm Pain Score (Numeric/FACES): 8 - Related Data Allergies Allergy/AdvReac Type Severity Reaction Status Date / Time bee venom protein (honey bee) Allergy Anaphylactic Verified 12/29/17 12:41 Shock lidocaine Allergy Rash Verified 12/29/17 12:41 Home Meds: Home Meds LORazepam [Ativan] 1 mg PO Q6H PRN MDD 3 pills per 24 hours 11/23/13 [History] Multivitamin [Multi-Vitamin Daily] 1 tab PO DAILY 11/23/13 [History] B-Complex with Vitamin C [Vitamin B-Complex & C] 1 tab PO DAILY 12/29/17 [History] EPINEPHrine [Epipen 2-Jaime] 0.3 mg IM ASDIRECTED PRN 12/29/17 [History] Folic Acid 1 mg PO DAILY 12/29/17 [History] Magnesium Chloride [Mag-64] 64 mg PO DAILY 12/29/17 [History] rOPINIRole HCl [Requip] 0.25 mg PO BEDTIME 12/29/17 [History] Glucosamine HCl [Glucosamine] 1,500 mg PO DAILY 12/30/17 [History] OLANZapine [Olanzapine] 15 mg PO BEDTIME 12/30/17 [History] Past Medical History Cardiovascular History: Reports: Hypertension Gastrointestinal History: Reports: Other (See Below) Other Gastrointestinal History: fatty liver Musculoskeletal History: Reports: Gout, Other (See Below) Other Musculoskeletal History: restless legs, pain of left shoulder Neurological History: Reports: Seizure, Other (See Below) Other Neuro History: mild cognitive impairment, neuroma, durg induced seizure, epilepsy, facial tic, neuroma Psychiatric History: Reports: ADD, Addiction Other Psychiatric History: ETOH addiction, insomnia Endocrine/Metabolic History: Reports: Other (See Below) Other Endocrine/Metabolic History: hyperglycemia Hematologic History: Reports: Anemia, Hemochromatosis, Other (See Below) Other Hematologic History: leukocytopenia - Past Surgical History Cardiovascular Surgical History: Reports: None Musculoskeletal Surgical History: Reports: None Social & Family History - Family History Family Medical History: No Pertinent Family History - Caffeine Use Caffeine Use: Reports: Coffee Review of Systems - Review of Systems Review Of Systems: Comprehensive ROS is negative, except as noted in HPI. ED EXAM, GENERAL - Physical Exam Exam: See Below Exam Limited By: No Limitations General Appearance: Alert, WD/WN, No Apparent Distress Respiratory/Chest: No Respiratory Distress Cardiovascular: Normal Peripheral Pulses Peripheral Pulses: 2+: Radial (L), Radial (R) Extremities: No: Normal Inspection (Examination is isolated to the left upper extremity. The left shoulder humerus and elbow is unremarkable. Left forearm there is no bruising swelling ecchymosis bony deformity step-offs abrasions contusions. He does have some tenderness primarily on the distal radius. He is able to flex and extend and rotate although it is quite uncomfortable for him. The CMS is intact appropriately to the rest the left upper forearm. He is able to flex and extend at all the joints of the hand appropriately.) ED TRAUMA EXTREMITY PROCEDURES - Splinting Left Upper Extremity Splint Site: Left forearm sugar tong Pre-Procedure NV Status: Normal Post-Procedure NV Status: Normal Splint Material: Fiberglass Splint Design: Sugar Tong Applied & Form Fitted By: Provider Provider Post-Splint Application NV Check: NV Status Normal, Good Position Complications: No Progress/Comments: Placed in the position of neutral tolerated well. Course - Vital Signs Last Recorded V/S: Last Vital Signs Temp 97.7 F 06/25/20 16:55 Pulse 64 06/25/20 16:55 Resp 16 06/25/20 16:55 BP 133/77 06/25/20 16:55 Pulse Ox 98 06/25/20 16:55 - Orders/Labs/Meds Meds: Medications Discontinued Medications Generic Name Dose Route Start Last Admin Trade Name Vitor PRN Reason Stop Dose Admin Hydrocodone Bitart/Acetaminophen 2 packet 06/25/20 18:52 06/25/20 19:05 Take Home: Acetam/Hydrocodon 325-5 Mg, 5 Pack PO 06/25/20 18:53 2 packet ONETIME ONE Administration - Radiology Interpretation Free Text/Narrative:: X-ray of the left arm shows an acute distal radial metaphyseal fracture. Nondisplaced and mildly comminuted. There is some intra-articular extension on the AP view with at least 2 fracture lines. Departure - Departure Time of Disposition: 18:46 Disposition: Home, Self-Care 01 Clinical Impression: Distal radius fracture, left Qualifiers: Encounter type: initial encounter Fracture type: closed Fracture morphology: unspecified fracture morphology Qualified Code(s): S52.502A - Unspecified fracture of the lower end of left radius, initial encounter for closed fracture - Discharge Information Instructions: RICE Therapy for Routine Care of Injuries, [id number], Cast or Splint Care, Adult, [id number], How To Use a Sling, [id number], Pain Medicine Instructions, [id number] Referrals: PCP,None [Primary Care Provider] - Forms: ED Department Discharge Additional Instructions: Tylenol and or Ibuprofen as needed for pain. RICE therapy see discharge instruction sheet. Keep above the level of the heart. REST ICE COMPRESSION ELEVATION. Sling at all times. Watch for appropriate circulation to the hand as shown in the ED. Do not get the cast wet. If pain not controlled with above. Hag[place] 1 tablet every 6 hrs with food as needed for pain. Caution sedation. Starter pack given from the ED. DO not take with tylenol. Return to the ED if new or worsening symptoms. Contact the [facility] in on saturday morning and get an appointment with the orthopaedic surgeon that comes to in 01-28 for recheck and following of wrist fracture.
--- NOTE | 2020-06-25 18:02 | CR ---
[id number] RAD/RAD Forearm Left 2V Exam: RAD Forearm Left 2V Indication:FALL MID FOREARM PAIN. Comparison: No prior imaging for comparison. Discussion/Impression: Acute distal radial metaphysis fracture. Fracture is nondisplaced and mildly comminuted. There does appear to be intra-articular extension on the AP view with at least 2 fracture lines extending through the subchondral endplate at the radiocarpal articulation. There is also extension into the distal radioulnar articulation. Lateral view demonstrates mild impaction at the fracture site. Chronic healed fracture of the ulnar diaphysis. Hawk Lucero MD 06/25/20 [id number] Thank you for allowing us to participate in the care of your patient.
[2020-06-25] MEDS ORDERED: Take Home: Acetaminophen/HYDROcodone 325-5 MG, 5 Tab Pack PO ONE (18:52)
[2020-06-25 20:13] VITALS: BP 133/77; PULSE 64
== END 2020-06-25 19:15 | disposition home or self-care (01) ==
LOC: VM.ED 16:47
DX: S52.502A Unspecified fracture of the lower end of left radius, initial encounter for closed fracture (principal); I10 Essential (primary) hypertension; Z91.030 Bee allergy status; Z88.4 Allergy status to anesthetic agent; Z79.899 Other long term (current) drug therapy; W19.XXXA Unspecified fall, initial encounter
CPT/HCPCS: 29125; 73090-LT; 99283; 99283-25; A9270-GY

== ENCOUNTER 2021-07-02 13:09 | Emergency (ER) | payer SELFPAY ==
[2021-07-02] MEDS ORDERED: Aspirin 81 MG Tab.Chew PO ONE (13:21)
[2021-07-02 13:36] VITALS: BP 159/97; PULSE 106
--- NOTE | 2021-07-02 13:53 | CR ---
[id number] RAD/RAD Chest PA or AP 1V EXAM: FRONTAL CHEST INDICATION: CHEST PAIN. COMPARISON: None. DISCUSSION: The lungs are mildly hypoinflated, but clear. The heart is normal in size. No effusions. IMPRESSION: 1. Low lung volumes. Julio Blanca MD 07/02/21 [id number] Thank you for allowing us to participate in the care of your patient.
[2021-07-02 14:02] LABS: CHLORIDE,CL 99 mmol/L (98-107); SODIUM,NA 141 mmol/L (136-145)
[2021-07-02 14:04] LABS: ANION GAP 17.8 mmol/L (5-15)
--- NOTE | 2021-07-02 14:04 | EDM.PDOC ---
ED HPI GENERAL MEDICAL PROBLEM - General Chief Complaint: Chest Pain Time Seen by Provider: 07/02/21 13:10 Source of Information: Reports: Patient History Limitations: Reports: No Limitations - History of Present Illness INITIAL COMMENTS - FREE TEXT/NARRATIVE: Pt. presents to ER with complaints of left lower chest pain. States that it is difficult to take a deep breath. He denies any trauma. Unable to recall specifically when the pain started but he thinks several days ago. Pt. is a daily drinker. States that he had "half a beer" with a sandwich for breakfast prior to coming in to ER. He states that he has had some diarrhea. No vomiting. He is nauseous. Denies any melena, hematochezia or hematemesis. Pt. denies any cough. No shortness of breath. Denies any lightheadedness or palpitations. No hemoptysis, melena, hematochezia, or hematemesis. Pt. states that he drinks after work, but does not become agitated if he doesn't consume alcohol. Onset: Today Location: Reports: Chest, Abdomen Associated Symptoms: Reports: Chest Pain, Nausea/Vomiting Middle Chest Pain Score (Numeric/FACES): 8 - Related Data Allergies Allergy/AdvReac Type Severity Reaction Status Date / Time bee venom protein (honey bee) Allergy Anaphylactic Verified 07/02/21 13:38 Shock lidocaine Allergy Rash Verified 07/02/21 13:38 Home Meds: Home Meds EPINEPHrine [Epipen 2-Jaime] 0.3 mg IM ASDIRECTED PRN 12/29/17 [History] Past Medical History - Past Health History Medical/Surgical History: Denies Medical/Surgical History Cardiovascular History: Reports: Hypertension Gastrointestinal History: Reports: Other (See Below) Other Gastrointestinal History: fatty liver Musculoskeletal History: Reports: Gout, Other (See Below) Other Musculoskeletal History: restless legs, pain of left shoulder Neurological History: Reports: Seizure, Other (See Below) Other Neuro History: mild cognitive impairment, neuroma, durg induced seizure, epilepsy, facial tic, neuroma Psychiatric History: Reports: ADD, Addiction Other Psychiatric History: ETOH addiction, insomnia Endocrine/Metabolic History: Reports: Other (See Below) Other Endocrine/Metabolic History: hyperglycemia Hematologic History: Reports: Anemia, Hemochromatosis, Other (See Below) Other Hematologic History: leukocytopenia - Past Surgical History Cardiovascular Surgical History: Reports: None Musculoskeletal Surgical History: Reports: None Social & Family History - Family History Family Medical History: No Pertinent Family History - Tobacco Use Tobacco Use Status *Q: Current Every Day Tobacco User Years of Tobacco use: 20 Packs/Tins Daily: 1 - Caffeine Use Caffeine Use: Reports: Coffee - Alcohol Use Days Per Week of Alcohol Use: 7 Number of Drinks Per Day: 5 Total Drinks Per Week: 35 - Recreational Drug Use Recreational Drug Use: No ED ROS GENERAL - Review of Systems Review Of Systems: See Below HEENT: Reports: No Symptoms Respiratory: Reports: Pleuritic Chest Pain Cardiovascular: Reports: No Symptoms Endocrine: Reports: No Symptoms GI/Abdominal: Reports: Abdominal Pain (L upper abdomen/chest pain) : Reports: No Symptoms Musculoskeletal: Reports: No Symptoms Skin: Reports: No Symptoms Neurological: Reports: No Symptoms Psychiatric: Reports: No Symptoms Hematologic/Lymphatic: Reports: No Symptoms Immunologic: Reports: No Symptoms ED EXAM, GENERAL - Physical Exam Exam: See Below Exam Limited By: No Limitations General Appearance: Alert, WD/WN, No Apparent Distress Head: Atraumatic, Normocephalic Neck: Normal Inspection, Supple, Non-Tender, Full Range of Motion Respiratory/Chest: No Respiratory Distress, Lungs Clear, Normal Breath Sounds, No Accessory Muscle Use, Chest Non-Tender Cardiovascular: Normal Peripheral Pulses, Regular Rate, Rhythm, No Edema, No JVD, No Murmur GI/Abdominal: Soft, Non-Tender, No Distention, No Mass (Male) Exam: Deferred Rectal (Males) Exam: Deferred Back Exam: Normal Inspection, Full Range of Motion Extremities: Normal Inspection, Normal Range of Motion, Non-Tender, No Pedal Edema, Normal Capillary Refill Neurological: Alert, Oriented, CN II-XII Intact, Normal Cognition, Normal Gait, Normal Reflexes, No Motor/Sensory Deficits Psychiatric: Normal Affect, Normal Mood Skin Exam: Warm, Dry, Intact, Normal Color, No Rash #1 Interpretation Rhythm: NSR [place]: Normal P-Wave: Present QRS: Normal ST-T: Normal QT: Normal Course - Vital Signs Last Recorded V/S: Last Vital Signs Temp 36.9 C 07/02/21 13:10 Pulse 106 H 07/02/21 13:10 Resp 18 07/02/21 13:10 BP 159/97 H 07/02/21 13:10 Pulse Ox 98 07/02/21 13:10 - Orders/Labs/Meds Orders: Active Orders 24 hr Category Date Time Status AMYLASE [CHEM] Stat Lab 07/02/21 13:34 Received Blood Alcohol [ETHANOL BLOOD MEDICAL] [CHEM] Stat Lab 07/02/21 13:34 Received COMPREHENSIVE METABOLIC PN,CMP [CHEM] Stat Lab 07/02/21 13:34 Received CORONAVIRUS COVID-19 RAPID [MOLEC] Stat Lab 07/02/21 13:42 Received CRP [C-REACTIVE PROTEIN] [CHEM] Stat Lab 07/02/21 13:34 Received LIPASE [CHEM] Stat Lab 07/02/21 13:34 Received MAGNESIUM [CHEM] Stat Lab 07/02/21 13:34 Received PHOSPHORUS [CHEM] Stat Lab 07/02/21 13:34 Received PRO B-TYPE NATRIUR PEPT,BNPPRO [CHEM] Stat Lab 07/02/21 13:34 Received TROPONIN I HIGH SENSITIVITY [CHEM] Stat Lab 07/02/21 13:34 Received Labs: Laboratory Tests 07/02/21 07/02/21 Range/Units 13:34 13:34 WBC 4.5 (4.0-10.0) x10^3/uL RBC 4.37 L (4.5-6.0) x10^6/uL Hgb 15.0 (14.0-18.0) g/dL Hct 41.6 (40.0-52.0) % MCV 95.2 H (78.0-93.0) fL MCH 34.3 H (26.0-32.0) pg MCHC 36.1 H (32.0-36.0) g/dL RDW Coeff of Shaneka 11.6 (10.0-15.0) % Plt Count 180 (130-400) x10^3/uL Immature Gran % (Auto) 0.40 (0.00-0.43) % Neut % (Auto) 66.0 (50.0-80.0) % Lymph % (Auto) 24.9 L (25.0-50.0) % [place] % (Auto) 7.6 (2.0-11.0) % Eos % (Auto) 0.7 (0.0-4.0) % Baso % (Auto) 0.4 (0.2-1.2) % Neut # (Auto) 2.9 (1.8-7.7) x10^3/uL Lymph # (Auto) 1.1 (1.0-4.8) x10^3/uL [place] # (Auto) 0.3 (0.0-0.8) x10^3/uL Eos # (Auto) 0.0 (0.0-0.5) x10^3/uL Baso # (Auto) 0.0 (0.0-0.2) x10^3/uL Immature Gran # (Auto) 0.02 (0.00-0.07) x10^3/uL PT 9.9 (9.9-12.5) SEC INR 0.9 L (2.0-3.5) D-Dimer, Quantitative 0.31 (<=0.58) mg/LFEU Meds: Medications Discontinued Medications Generic Name Dose Route Start Last Admin Trade Name Freq PRN Reason Stop Dose Admin Aspirin 324 mg 07/02/21 13:21 07/02/21 13:21 Aspirin 81 Mg Tab.Chew PO 07/02/21 13:22 324 mg ONETIME ONE Administration - Radiology Interpretation Free Text/Narrative:: negative chest x-ray Departure - Departure Time of Disposition: 14:15 Disposition: Home, Self-Care 01 Clinical Impression: Gastritis - Discharge Information Forms: ED Department Discharge Sepsis Event Note (ED) - Focused Exam Vital Signs: Vital Signs Temp Pulse Resp BP Pulse Ox 07/02/21 13:10 36.9 C 106 H 18 159/97 H 98 - Problem List Review Problem List Initiated/Reviewed/Updated: Yes - My Orders Last 24 Hours: My Active Orders 07/02/21 13:34 AMYLASE [CHEM] Stat Blood Alcohol [ETHANOL BLOOD MEDICAL] [CHEM] Stat COMPREHENSIVE METABOLIC PN,CMP [CHEM] Stat CRP [C-REACTIVE PROTEIN] [CHEM] Stat LIPASE [CHEM] Stat MAGNESIUM [CHEM] Stat PHOSPHORUS [CHEM] Stat PRO B-TYPE NATRIUR PEPT,BNPPRO [CHEM] Stat TROPONIN I HIGH SENSITIVITY [CHEM] Stat 07/02/21 13:42 CORONAVIRUS COVID-19 RAPID [MOLEC] Stat - Assessment/Plan Last 24 Hours: My Active Orders 07/02/21 13:34 AMYLASE [CHEM] Stat Blood Alcohol [ETHANOL BLOOD MEDICAL] [CHEM] Stat COMPREHENSIVE METABOLIC PN,CMP [CHEM] Stat CRP [C-REACTIVE PROTEIN] [CHEM] Stat LIPASE [CHEM] Stat MAGNESIUM [CHEM] Stat PHOSPHORUS [CHEM] Stat PRO B-TYPE NATRIUR PEPT,BNPPRO [CHEM] Stat TROPONIN I HIGH SENSITIVITY [CHEM] Stat 07/02/21 13:42 CORONAVIRUS COVID-19 RAPID [MOLEC] Stat Plan: Home to rest. Stop drinking alcohol. Protonix 40mg once daily Zofran ODT 4mg 1 every 6 hours as needed for nausea. Contact ER/PCP if you are unable to stop drinking without feeling agitated, or if you want to go into treatment.
[2021-07-02] MEDS ORDERED: Pantoprazole 40 MG Tab.CR PO ONE (14:10)
[2021-07-02] MEDS ORDERED: Take Home: Ondansetron 4 MG Tab.DIS, 2 Tab Pack PO ONE (14:11)
== END 2021-07-02 14:20 | disposition home or self-care (01) ==
LOC: VM.ED 13:09
DX: K29.70 Gastritis, unspecified, without bleeding (principal); I10 Essential (primary) hypertension; Z88.4 Allergy status to anesthetic agent; Z91.030 Bee allergy status; Z72.0 Tobacco use; Z20.822 Contact with and (suspected) exposure to COVID-19
CPT/HCPCS: 36415; 71045; 80053; 80307; 82150; 83690; 83735; 83880; 84100; 84484; 85025; 85379; 85610; 86140; 93005; 93010; 99284; 99285-25; A9270-GY; U0002

== ENCOUNTER 2023-02-09 15:43 | Inpatient (IN) | payer MEDICAID ==
[2023-02-09 16:15] LABS: BASOPHILS PERCENT AUTO 0.4 % (0.2-1.2); HEMATOCRIT 40.7 % (40.0-52.0); HEMOGLOBIN 14.3 g/dL (14.0-18.0); IMMATURE GRAN ABSOLUTE AUTO 0.03 x10^3/uL (0.00-0.07); LYMPHOCYTES ABSOLUTE AUTO 0.6 x10^3/uL (1.0-4.8); LYMPHOCYTES PERCENT AUTO 9.1 % (25.0-50.0); MEAN CORPUSCULAR HEMOGLOBIN 35.5 pg (26.0-32.0); MEAN CORPUSCULAR HGB CONC 35.1 g/dL (32.0-36.0); MONOCYTES ABSOLUTE AUTO 0.6 x10^3/uL (0.0-0.8); MONOCYTES PERCENT AUTO 8.3 % (2.0-11.0); NEUTROPHILS ABSOLUTE AUTO 5.7 x10^3/uL (1.8-7.7); NEUTROPHILS PERCENT AUTO 81.8 % (50.0-80.0); PLATELET COUNT,PLT 152 x10^3/uL (130-400); RED BLOOD CELL COUNT 4.03 x10^6/uL (4.5-6.0)
[2023-02-09 16:30] LABS: INR 1.1 (2.0-3.5); PROTHROMBIN TIME 11.4 SEC (9.5-12.2); PTT,PARTIAL THROMBOPLSTIN TIME 25.1 SEC (23.6-33.6)
[2023-02-09 16:40] LABS: A/G RATIO 1.02; ALBUMIN 4.4 g/dL (3.4-5.0); ANION GAP 34.5 mmol/L (5-15); BILIRUBIN TOTAL 1.5 mg/dL (0.2-1.0); C-REACTIVE PROTEIN 0.13 mg/dL (<=0.30); CALCIUM 9.1 mg/dL (8.5-10.1); CREATININE 1.5 mg/dL (0.70-1.30); EST CRCL DRUG DOSING (CG) 52.39 mL/min; MAGNESIUM 1.9 mg/dL (1.8-2.4); PHOSPHORUS 5.1 mg/dL (2.6-4.7); POTASSIUM,K 3.5 mmol/L (3.5-5.1); PROTEIN TOTAL,TP 8.7 g/dL (6.4-8.2); TSH ULTRASENSITIVE 3.969 uIU/mL (0.358-3.74)
[2023-02-09] MEDS ORDERED: LORazepam 2 MG/ML SDV IVPUSH ONE (16:45)
[2023-02-09] MEDS ORDERED: Lactated Ringers 1,000 ML IV ONE (17:30)
[2023-02-09 17:46] LABS: APPEARANCE,URINE CLEAR (CLEAR); BILIRUBIN,URINE NEGATIVE (NEGATIVE); COLOR,URINE DARK YELLOW (YELLOW); GLUCOSE,URINE NEGATIVE (NEGATIVE); KETONES,URINE 15 mg/dL (NEGATIVE); LEUKOCYTE ESTERASE,URINE NEGATIVE (NEGATIVE); NITRITE,URINE NEGATIVE (NEGATIVE); OCCULT BLOOD,URINE MODERATE (NEGATIVE); PH,URINE 6.5 (5.0-8.0); PROTEIN,URINE 100 mg/dL (NEGATIVE)
[2023-02-09 17:51] LABS: AMPHETAMINE, URINE NEGATIVE (NEGATIVE); BARBITUATES,URINE NEGATIVE (NEGATIVE); BENZODIAZEPINES,URINE NEGATIVE (NEGATIVE); BUPRENORPHINE,URINE NEGATIVE (NEGATIVE); COCAINE,URINE NEGATIVE (NEGATIVE); MARIJUANA,URINE POSITIVE (NEGATIVE); METHADONE,URINE NEGATIVE (NEGATIVE); METHAMPHETAMINE,URINE NEGATIVE (NEGATIVE); METHYLENEDIOXYMETHAMP,UR NEGATIVE (NEGATIVE); OPIATES,URINE NEGATIVE (NEGATIVE); OXYCODONE,URINE NEGATIVE (NEGATIVE); PHENCYCLIDINE,URINE NEGATIVE
[2023-02-09 17:55] LABS: BACTERIA,URINE RARE /HPF (NOT SEEN); MUCUS,URINE OCCASIONAL /LPF (NOT SEEN); WBC,URINE 0-5 /HPF (NOT SEEN)
[2023-02-09] MEDS ORDERED: Haloperidol Lactate 5 MG/ML SDV IV PRN (19:29)
[2023-02-09] MEDS ORDERED: Ondansetron 4 MG/2 ML SDV IVPUSH PRN (19:32)
[2023-02-09] MEDS ORDERED: PHENobarbitaL sodium 260 MG in Sodium Chloride 0.9% 100 ML IV ONE (19:46)
[2023-02-09] MEDS ORDERED: Lactated Ringers 2,000 ML IV ONE (19:48)
[2023-02-09] MEDS: Nicotine 21 MG/24 Hr Patch TRDERM SCH (20:39)
[2023-02-09] MEDS: Pantoprazole 40 MG Vial IV SCH (20:40)
[2023-02-09] MEDS: Lactulose Soln 10 GM/15 ML 30 ML UD Cup PO SCH (20:56)
[2023-02-09] MEDS: Thiamine 500 MG in Sodium Chloride 0.9% 100 ML IV SCH (22:16)
[2023-02-09] MEDS: Sodium Chloride 0.9% 1,000 ML IV SCH (22:27)
[2023-02-10] MEDS: Sodium Chloride 0.9% 1,000 ML IV SCH ×3 (06:05→22:34)
[2023-02-10 07:55] LABS: BASOPHILS PERCENT AUTO 0.4 % (0.2-1.2); HEMATOCRIT 38.1 % (40.0-52.0); HEMOGLOBIN 13.9 g/dL (14.0-18.0); IMMATURE GRAN ABSOLUTE AUTO 0.01 x10^3/uL (0.00-0.07); LYMPHOCYTES PERCENT AUTO 21.8 % (25.0-50.0); MEAN CORPUSCULAR HEMOGLOBIN 35.1 pg (26.0-32.0); MEAN CORPUSCULAR HGB CONC 36.5 g/dL (32.0-36.0); MEAN CORPUSCULAR VOLUME 96.2 fL (78.0-93.0); MONOCYTES ABSOLUTE AUTO 0.5 x10^3/uL (0.0-0.8); MONOCYTES PERCENT AUTO 11.1 % (2.0-11.0); NEUTROPHILS PERCENT AUTO 66.5 % (50.0-80.0); PLATELET COUNT,PLT 124 x10^3/uL (130-400); RED BLOOD CELL COUNT 3.96 x10^6/uL (4.5-6.0); WHITE BLOOD CELL COUNT,WBC 4.5 x10^3/uL (4.0-10.0)
[2023-02-10 08:16] LABS: ALANINE AMINOTRANSFERASE,ALT 115 U/L (16-63); ALBUMIN 4.1 g/dL (3.4-5.0); ALKALINE PHOSPHATASE 100 U/L (46-116); ASPARTATE AMNIOTRANSFERASE,AST 154 U/L (15-37); BILIRUBIN TOTAL 2.3 mg/dL (0.2-1.0); BLOOD UREA NITROGEN,BUN 6 mg/dL (7-18); CALCIUM 8.9 mg/dL (8.5-10.1); CARBON DIOXIDE,CO2 27 mmol/L (21-32); CHLORIDE,CL 93 mmol/L (98-107); CREATININE 0.8 mg/dL (0.70-1.30); GLUCOSE RANDOM 78 mg/dL (70-99); PROTEIN TOTAL,TP 8.2 g/dL (6.4-8.2); SODIUM,NA 134 mmol/L (136-145)
[2023-02-10 08:21] LABS: ANION GAP 16.9 mmol/L (5-15); ESTIMATED GFR 109 mL/min (>=60); POTASSIUM,K 2.9 mmol/L (3.5-5.1)
[2023-02-10] MEDS: Nicotine 21 MG/24 Hr Patch TRDERM SCH (08:54)
[2023-02-10] MEDS: Lactulose Soln 10 GM/15 ML 30 ML UD Cup PO SCH ×3 (08:56→21:29)
[2023-02-10] MEDS: Pantoprazole 40 MG Vial IV SCH (08:58)
[2023-02-10] MEDS ORDERED: PHENobarbital Sodium 65 MG/ML SDV IV SCH (09:00)
[2023-02-10] MEDS ORDERED: Potassium Chloride 20 MEQ Tab.ER PO ONE (09:11)
[2023-02-10] MEDS: Thiamine 500 MG in Sodium Chloride 0.9% 100 ML IV SCH ×3 (09:12→20:52)
[2023-02-10] MEDS ORDERED: Potassium Chloride Riders 20 MEQ in Premix Bag 1 BAG IV ONE (09:12)
[2023-02-10] MEDS ORDERED: PHENobarbital Sodium 65 MG/ML SDV ONE (10:24)
[2023-02-10] MEDS: PHENobarbitaL sodium 130 MG in Sodium Chloride 0.9% 100 ML IV SCH (10:28)
[2023-02-10] MEDS ORDERED: Thiamine 200 MG/2 ML MDV ONE (19:49)
[2023-02-10 21:35] VITALS: BP 151/88
[2023-02-11 03:05] VITALS: PULSE 96
[2023-02-11 07:42] LABS: BASOPHILS PERCENT AUTO 0.5 % (0.2-1.2); EOSINOPHILS PERCENT AUTO 0.5 % (0.0-4.0); HEMATOCRIT 39.3 % (40.0-52.0); HEMOGLOBIN 14.7 g/dL (14.0-18.0); IMMATURE GRAN ABSOLUTE AUTO 0.01 x10^3/uL (0.00-0.07); LYMPHOCYTES ABSOLUTE AUTO 1.4 x10^3/uL (1.0-4.8); LYMPHOCYTES PERCENT AUTO 24.8 % (25.0-50.0); MEAN CORPUSCULAR HEMOGLOBIN 35.9 pg (26.0-32.0); MEAN CORPUSCULAR HGB CONC 37.4 g/dL (32.0-36.0); MEAN CORPUSCULAR VOLUME 96.1 fL (78.0-93.0); MONOCYTES ABSOLUTE AUTO 0.6 x10^3/uL (0.0-0.8); MONOCYTES PERCENT AUTO 10.7 % (2.0-11.0); NEUTROPHILS ABSOLUTE AUTO 3.6 x10^3/uL (1.8-7.7); NEUTROPHILS PERCENT AUTO 63.3 % (50.0-80.0); PLATELET COUNT,PLT 137 x10^3/uL (130-400); RED BLOOD CELL COUNT 4.09 x10^6/uL (4.5-6.0); WHITE BLOOD CELL COUNT,WBC 5.7 x10^3/uL (4.0-10.0)
[2023-02-11 08:05] LABS: A/G RATIO 1.05; ALANINE AMINOTRANSFERASE,ALT 164 U/L (16-63); ALBUMIN 4.4 g/dL (3.4-5.0); ALKALINE PHOSPHATASE 117 U/L (46-116); ASPARTATE AMNIOTRANSFERASE,AST 232 U/L (15-37); BILIRUBIN TOTAL 3.1 mg/dL (0.2-1.0); BLOOD UREA NITROGEN,BUN 7 mg/dL (7-18); CALCIUM 9.2 mg/dL (8.5-10.1); CARBON DIOXIDE,CO2 28 mmol/L (21-32); CHLORIDE,CL 92 mmol/L (98-107); CREATININE 0.8 mg/dL (0.70-1.30); ESTIMATED GFR 109 mL/min (>=60); GLUCOSE RANDOM 159 mg/dL (70-99); PROTEIN TOTAL,TP 8.6 g/dL (6.4-8.2); SODIUM,NA 131 mmol/L (136-145)
[2023-02-11] MEDS: Nicotine 21 MG/24 Hr Patch TRDERM SCH (09:47)
[2023-02-11] MEDS: PHENobarbitaL sodium 130 MG in Sodium Chloride 0.9% 100 ML IV SCH (09:47)
[2023-02-11] MEDS: Pantoprazole 40 MG Vial IV SCH (09:47)
[2023-02-11] MEDS: Lactulose Soln 10 GM/15 ML 30 ML UD Cup PO SCH (09:47)
[2023-02-11] MEDS: Thiamine 500 MG in Sodium Chloride 0.9% 100 ML IV SCH (09:47)
== END 2023-02-11 08:15 | disposition home or self-care (01) | DRG 896 ==
LOC: EEVIPCON 15:43 → VM.ED 15:43 → VM.MS 17:05 → EEVIPCON 17:05
PROVIDERS: ADMIT Nurse Practitioner Family; ATTEND Nurse Practitioner Family
DX: F10.231 Alcohol dependence with withdrawal delirium (principal); G93.41 Metabolic encephalopathy; E51.2 Wernicke's encephalopathy; E87.20 Acidosis, unspecified; E72.20 Disorder of urea cycle metabolism, unspecified; R56.9 Unspecified convulsions; E78.00 Pure hypercholesterolemia, unspecified; F51.01 Primary insomnia; I10 Essential (primary) hypertension; F04 Amnestic disorder due to known physiological condition; K76.0 Fatty (change of) liver, not elsewhere classified; Z91.030 Bee allergy status; Z88.8 Allergy status to other drugs, medicaments and biological substances
CPT/HCPCS: 36415; 70450; 80053; 80305-QW; 80307; 81001; 82140; 82607; 82746; 83605; 83735; 84100; 84425; 84443; 84484; 85025; 85610; 85730; 86140; 93005; 93010; 96374; 99284; 99285-25; A9270-GY; C9113; J2060; J2560; J3360; J3411; J3480; J3490; J7030; J7120

== ENCOUNTER 2023-03-02 12:03 | Observation (INO) | payer MEDICAID ==
[2023-03-02 12:32] LABS: BASOPHILS PERCENT AUTO 0.4 % (0.2-1.2); EOSINOPHILS PERCENT AUTO 0.3 % (0.0-4.0); IMMATURE GRAN ABSOLUTE AUTO 0.04 x10^3/uL (0.00-0.07); LYMPHOCYTES ABSOLUTE AUTO 1.7 x10^3/uL (1.0-4.8); LYMPHOCYTES PERCENT AUTO 16.1 % (25.0-50.0); MEAN CORPUSCULAR HEMOGLOBIN 35.2 pg (26.0-32.0); MEAN CORPUSCULAR HGB CONC 36.4 g/dL (32.0-36.0); MEAN CORPUSCULAR VOLUME 96.8 fL (78.0-93.0); MONOCYTES ABSOLUTE AUTO 0.8 x10^3/uL (0.0-0.8); MONOCYTES PERCENT AUTO 7.3 % (2.0-11.0); NEUTROPHILS ABSOLUTE AUTO 7.9 x10^3/uL (1.8-7.7); NEUTROPHILS PERCENT AUTO 75.5 % (50.0-80.0); PLATELET COUNT,PLT 235 x10^3/uL (130-400); RED BLOOD CELL COUNT 3.41 x10^6/uL (4.5-6.0); WHITE BLOOD CELL COUNT,WBC 10.5 x10^3/uL (4.0-10.0)
[2023-03-02 12:53] LABS: A/G RATIO 0.95; ALANINE AMINOTRANSFERASE,ALT 63 U/L (16-63); ALBUMIN 4.1 g/dL (3.4-5.0); ALKALINE PHOSPHATASE 103 U/L (46-116); ASPARTATE AMNIOTRANSFERASE,AST 60 U/L (15-37); BILIRUBIN TOTAL 1.3 mg/dL (0.2-1.0); BLOOD UREA NITROGEN,BUN 9 mg/dL (7-18); C-REACTIVE PROTEIN 0.86 mg/dL (<=0.30); CALCIUM 9.1 mg/dL (8.5-10.1); CARBON DIOXIDE,CO2 27 mmol/L (21-32); CHLORIDE,CL 98 mmol/L (98-107); GLUCOSE RANDOM 79 mg/dL (70-99); PROTEIN TOTAL,TP 8.4 g/dL (6.4-8.2); SODIUM,NA 138 mmol/L (136-145)
[2023-03-02 12:58] LABS: ANION GAP 15.7 mmol/L (5-15); ESTIMATED GFR 93 mL/min (>=60); POTASSIUM,K 2.7 mmol/L (3.5-5.1)
[2023-03-02] MEDS ORDERED: Sodium Chloride 0.9% 1,000 ML IV ONE (12:58)
[2023-03-02] MEDS ORDERED: Potassium Chloride Riders 20 MEQ in Premix Bag 1 BAG IV ONE ×2 (12:58→13:49)
[2023-03-02 12:59] LABS: CREATINE KINASE,CK 438 U/L (39-308)
[2023-03-02 13:04] LABS: AMPHETAMINES SCREEN, URINE NEGATIVE (NEGATIVE); BARBITURATE SCREEN,URINE NEGATIVE (NEGATIVE); BENZODIAZEPINES SCREEN,URINE POSITIVE (NEGATIVE)
[2023-03-02 13:05] LABS: APPEARANCE,URINE SLIGHTLY CLOUDY (CLEAR); BILIRUBIN,URINE NEGATIVE (NEGATIVE); BUPRENORPHINE SCREEN,URINE NEGATIVE (NEGATIVE); COCAINE METABOLITES,URINE NEGATIVE (NEGATIVE); COLOR,URINE YELLOW (YELLOW); GLUCOSE,URINE NEGATIVE (NEGATIVE); KETONES,URINE TRACE mg/dL (NEGATIVE); LEUKOCYTE ESTERASE,URINE NEGATIVE (NEGATIVE); METHADONE SCREEN, URINE NEGATIVE (NEGATIVE); METHAMPHETAMINE SCREEN, URINE NEGATIVE (NEGATIVE); NITRITE,URINE NEGATIVE (NEGATIVE); OCCULT BLOOD,URINE NEGATIVE (NEGATIVE); OXYCODONE SCREEN,URINE NEGATIVE (NEGATIVE); PCP SCREEN,URINE NEGATIVE (NEGATIVE); PROTEIN,URINE TRACE mg/dL (NEGATIVE); THC SCREEN,URINE 50 NG/ML POSITIVE (NEGATIVE)
[2023-03-02 13:10] LABS: BACTERIA,URINE NOT SEEN /HPF (NOT SEEN); MUCUS,URINE NOT SEEN /LPF (NOT SEEN); RBC,URINE 0-5 /HPF (NOT SEEN); SQUAMOUS EPITHELIAL CELLS,UR RARE /HPF (NOT SEEN); WBC,URINE 0-5 /HPF (NOT SEEN)
[2023-03-02 13:11] LABS: AMORPHOUS SEDIMENT,URINE RARE; HYALINE CASTS,URINE RARE
[2023-03-02 13:12] LABS: ETHANOL BLOOD MEDICAL < 3 mg/dL (0-3)
[2023-03-02] MEDS ORDERED: Acetaminophen 325 MG Tab PO PRN (13:58)
[2023-03-02] MEDS ORDERED: Ondansetron 4 MG Tab.DIS PO PRN (13:58)
[2023-03-02] MEDS: cloNIDine 0.1 MG Tab PO SCH ×2 (14:42→22:10)
[2023-03-02] MEDS: Nicotine 14 MG/24 Hr Patch TRDERM SCH (16:11)
[2023-03-02] MEDS: LORazepam 1 MG Tab PO PRN ×2 (16:12→22:10)
[2023-03-02] MEDS: Potassium Chloride 10 MEQ Tab.ER PO SCH (18:25)
[2023-03-03] MEDS: LORazepam 1 MG Tab PO PRN ×2 (04:00→12:46)
[2023-03-03] MEDS: cloNIDine 0.1 MG Tab PO SCH (06:34)
[2023-03-03] MEDS: Potassium Chloride 10 MEQ Tab.ER PO SCH (08:31)
[2023-03-03] MEDS: Nicotine 14 MG/24 Hr Patch TRDERM SCH (08:31)
[2023-03-03 10:36] LABS: BASOPHILS PERCENT AUTO 0.5 % (0.2-1.2); EOSINOPHILS ABSOLUTE AUTO 0.1 x10^3/uL (0.0-0.5); EOSINOPHILS PERCENT AUTO 0.8 % (0.0-4.0); HEMATOCRIT 38.8 % (40.0-52.0); HEMOGLOBIN 13.8 g/dL (14.0-18.0); IMMATURE GRAN ABSOLUTE AUTO 0.02 x10^3/uL (0.00-0.07); LYMPHOCYTES ABSOLUTE AUTO 1.8 x10^3/uL (1.0-4.8); LYMPHOCYTES PERCENT AUTO 22.4 % (25.0-50.0); MEAN CORPUSCULAR HGB CONC 35.6 g/dL (32.0-36.0); MEAN CORPUSCULAR VOLUME 98.5 fL (78.0-93.0); MONOCYTES ABSOLUTE AUTO 0.6 x10^3/uL (0.0-0.8); MONOCYTES PERCENT AUTO 7.3 % (2.0-11.0); NEUTROPHILS ABSOLUTE AUTO 5.5 x10^3/uL (1.8-7.7); NEUTROPHILS PERCENT AUTO 68.7 % (50.0-80.0); PLATELET COUNT,PLT 241 x10^3/uL (130-400); RED BLOOD CELL COUNT 3.94 x10^6/uL (4.5-6.0)
[2023-03-03 10:57] LABS: A/G RATIO 0.83; ALBUMIN 3.8 g/dL (3.4-5.0); BILIRUBIN TOTAL 1.6 mg/dL (0.2-1.0); CALCIUM 8.8 mg/dL (8.5-10.1); CREATININE 0.9 mg/dL (0.70-1.30); EST CRCL DRUG DOSING (CG) 84.05 mL/min; POTASSIUM,K 3.7 mmol/L (3.5-5.1); PROTEIN TOTAL,TP 8.4 g/dL (6.4-8.2)
[2023-03-03 10:58] LABS: ANION GAP 13.7 mmol/L (5-15)
[2023-03-03] MEDS ORDERED: Potassium Chloride 10 MEQ Tab.ER PO ONE (12:47)
[2023-03-03] MEDS ORDERED: LORazepam 1 MG Tab PO ONE (12:47)
[2023-03-03 13:33] VITALS: BP 133/88; PULSE 92
== END 2023-03-03 13:30 | disposition home or self-care (01) ==
LOC: VM.ED 12:03 → VM.MS 13:55
PROVIDERS: ADMIT Physician Assistant Medical; ATTEND Physician Assistant Medical
DX: R41.0 Disorientation, unspecified (principal); E87.6 Hypokalemia; I10 Essential (primary) hypertension; K76.0 Fatty (change of) liver, not elsewhere classified; M10.9 Gout, unspecified; G25.81 Restless legs syndrome; F98.8 Other specified behavioral and emotional disorders with onset usually occurring in childhood and adolescence; F17.200 Nicotine dependence, unspecified, uncomplicated; Z79.899 Other long term (current) drug therapy; Z88.8 Allergy status to other drugs, medicaments and biological substances
CPT/HCPCS: 36415; 70450; 80053; 80305-QW; 80307; 81001; 82140; 82550; 83605; 84132; 85025; 86140; 99223; 99239; A9270-GY; J3480; J7030

== ENCOUNTER 2023-08-09 19:23 | Emergency (ER) | payer MEDICAID ==
[2023-08-09] MEDS: Diphtheria,Pertussis(Acell),Tetanus Vaccine 0.5 ML Syringe IM ONE (20:07)
[2023-08-09 20:44] VITALS: BP 136/84; PULSE 89
== END 2023-08-09 20:09 | disposition home or self-care (01) ==
LOC: VM.ED 19:23
DX: S61.412A Laceration without foreign body of left hand, initial encounter (principal); Z23 Encounter for immunization; I10 Essential (primary) hypertension; E78.00 Pure hypercholesterolemia, unspecified; Z79.899 Other long term (current) drug therapy; Z91.030 Bee allergy status; Z88.8 Allergy status to other drugs, medicaments and biological substances; W31.2XXA Contact with powered woodworking and forming machines, initial encounter
CPT/HCPCS: 12001; 90471; 90715; 99282-25

== ENCOUNTER 2023-09-07 00:40 | Emergency (ER) | payer MEDICAID ==
[2023-09-07 01:19] LABS: BASOPHILS PERCENT AUTO 0.3 % (0.2-1.2); EOSINOPHILS ABSOLUTE AUTO 0.2 x10^3/uL (0.0-0.5); EOSINOPHILS PERCENT AUTO 1.8 % (0.0-4.0); HEMATOCRIT 48.7 % (40.0-52.0); HEMOGLOBIN 16.4 g/dL (14.0-18.0); IMMATURE GRAN ABSOLUTE AUTO 0.05 x10^3/uL (0.00-0.07); LYMPHOCYTES ABSOLUTE AUTO 3.9 x10^3/uL (1.0-4.8); MEAN CORPUSCULAR HGB CONC 33.7 g/dL (32.0-36.0); MEAN CORPUSCULAR VOLUME 95.1 fL (78.0-93.0); MONOCYTES ABSOLUTE AUTO 0.6 x10^3/uL (0.0-0.8); MONOCYTES PERCENT AUTO 5.5 % (2.0-11.0); NEUTROPHILS PERCENT AUTO 55.9 % (50.0-80.0); PLATELET COUNT,PLT 215 x10^3/uL (130-400); RED BLOOD CELL COUNT 5.12 x10^6/uL (4.5-6.0); WHITE BLOOD CELL COUNT,WBC 10.8 x10^3/uL (4.0-10.0)
[2023-09-07 01:43] LABS: AMPHETAMINES SCREEN, URINE NEGATIVE (NEGATIVE); BARBITURATE SCREEN,URINE NEGATIVE (NEGATIVE)
[2023-09-07 01:44] LABS: A/G RATIO 1.05; ACETAMINOPHEN 0 ug/ml (10-30); ALANINE AMINOTRANSFERASE,ALT 22 U/L (16-63); ALBUMIN 4.2 g/dL (3.4-5.0); ALKALINE PHOSPHATASE 174 U/L (46-116); ANION GAP 14.4 mmol/L (5-15); ASPARTATE AMNIOTRANSFERASE,AST 24 U/L (15-37); BILIRUBIN TOTAL 0.2 mg/dL (0.2-1.0); BLOOD UREA NITROGEN,BUN 9 mg/dL (7-18); CALCIUM 8.8 mg/dL (8.5-10.1); CARBON DIOXIDE,CO2 28 mmol/L (21-32); CHLORIDE,CL 107 mmol/L (98-107); CREATININE 0.8 mg/dL (0.70-1.30); ESTIMATED GFR 108 mL/min (>=60); GLUCOSE RANDOM 92 mg/dL (70-99); POTASSIUM,K 4.4 mmol/L (3.5-5.1); PROTEIN TOTAL,TP 8.2 g/dL (6.4-8.2); SODIUM,NA 145 mmol/L (136-145)
[2023-09-07 01:44] LABS: BENZODIAZEPINES SCREEN,URINE NEGATIVE (NEGATIVE); BUPRENORPHINE SCREEN,URINE NEGATIVE (NEGATIVE); COCAINE METABOLITES,URINE NEGATIVE (NEGATIVE); METHADONE SCREEN, URINE NEGATIVE (NEGATIVE); METHAMPHETAMINE SCREEN, URINE NEGATIVE (NEGATIVE); OXYCODONE SCREEN,URINE NEGATIVE (NEGATIVE); PCP SCREEN,URINE NEGATIVE (NEGATIVE); THC SCREEN,URINE 50 NG/ML NEGATIVE (NEGATIVE)
[2023-09-07 01:45] LABS: ETHANOL BLOOD MEDICAL 314 mg/dL (0-3)
[2023-09-07 02:01] VITALS: PULSE 84
[2023-09-07 02:26] VITALS: BP 102/72
== END 2023-09-07 01:59 | disposition home or self-care (01) ==
LOC: VM.ED 00:40
DX: F10.10 Alcohol abuse, uncomplicated (principal); F19.10 Other psychoactive substance abuse, uncomplicated; I10 Essential (primary) hypertension; Z88.4 Allergy status to anesthetic agent; Z91.030 Bee allergy status
CPT/HCPCS: 36415; 70450; 80053; 80143; 80179; 80305-QW; 80307; 84484; 85025; 93005; 99285

== ENCOUNTER 2023-11-11 10:52 | Emergency (ER) | payer MEDICAID ==
[2023-11-11 11:21] LABS: BASOPHILS PERCENT AUTO 0.3 % (0.2-1.2); EOSINOPHILS PERCENT AUTO 0.6 % (0.0-4.0); HEMATOCRIT 42.6 % (40.0-52.0); HEMOGLOBIN 14.7 g/dL (14.0-18.0); IMMATURE GRAN ABSOLUTE AUTO 0.03 x10^3/uL (0.00-0.07); LYMPHOCYTES ABSOLUTE AUTO 3.5 x10^3/uL (1.0-4.8); LYMPHOCYTES PERCENT AUTO 53.7 % (25.0-50.0); MEAN CORPUSCULAR HEMOGLOBIN 32.6 pg (26.0-32.0); MEAN CORPUSCULAR HGB CONC 34.5 g/dL (32.0-36.0); MEAN CORPUSCULAR VOLUME 94.5 fL (78.0-93.0); MONOCYTES ABSOLUTE AUTO 0.4 x10^3/uL (0.0-0.8); MONOCYTES PERCENT AUTO 5.6 % (2.0-11.0); NEUTROPHILS ABSOLUTE AUTO 2.6 x10^3/uL (1.8-7.7); NEUTROPHILS PERCENT AUTO 39.3 % (50.0-80.0); PLATELET COUNT,PLT 210 x10^3/uL (130-400); RED BLOOD CELL COUNT 4.51 x10^6/uL (4.5-6.0); WHITE BLOOD CELL COUNT,WBC 6.6 x10^3/uL (4.0-10.0)
[2023-11-11 11:24] LABS: APPEARANCE,URINE CLEAR (CLEAR); BILIRUBIN,URINE NEGATIVE (NEGATIVE); COLOR,URINE YELLOW (YELLOW); GLUCOSE,URINE NEGATIVE (NEGATIVE); KETONES,URINE NEGATIVE (NEGATIVE); LEUKOCYTE ESTERASE,URINE NEGATIVE (NEGATIVE); NITRITE,URINE NEGATIVE (NEGATIVE); OCCULT BLOOD,URINE NEGATIVE (NEGATIVE); PH,URINE 5.5 (5.0-8.0); PROTEIN,URINE NEGATIVE (NEGATIVE); UROBILINOGEN,URINE 0.2 EU/dL (0.2)
[2023-11-11 11:29] LABS: AMPHETAMINES SCREEN, URINE NEGATIVE (NEGATIVE); BARBITURATE SCREEN,URINE NEGATIVE (NEGATIVE); BENZODIAZEPINES SCREEN,URINE NEGATIVE (NEGATIVE); BUPRENORPHINE SCREEN,URINE NEGATIVE (NEGATIVE); COCAINE METABOLITES,URINE NEGATIVE (NEGATIVE); METHADONE SCREEN, URINE NEGATIVE (NEGATIVE); METHAMPHETAMINE SCREEN, URINE NEGATIVE (NEGATIVE); OXYCODONE SCREEN,URINE NEGATIVE (NEGATIVE); PCP SCREEN,URINE NEGATIVE (NEGATIVE); THC SCREEN,URINE 50 NG/ML NEGATIVE (NEGATIVE)
[2023-11-11 11:54] LABS: ALANINE AMINOTRANSFERASE,ALT 15 U/L (16-63); ALBUMIN 3.8 g/dL (3.4-5.0); ALKALINE PHOSPHATASE 565 U/L (46-116); ASPARTATE AMNIOTRANSFERASE,AST 18 U/L (15-37); BILIRUBIN TOTAL 0.3 mg/dL (0.2-1.0); BLOOD UREA NITROGEN,BUN 10 mg/dL (7-18); C-REACTIVE PROTEIN 1.91 mg/dL (<=0.50); CALCIUM 8.4 mg/dL (8.5-10.1); CARBON DIOXIDE,CO2 28 mmol/L (21-32); CHLORIDE,CL 109 mmol/L (98-107); CREATININE 0.9 mg/dL (0.70-1.30); GLUCOSE RANDOM 98 mg/dL (70-99); MAGNESIUM 1.8 mg/dL (1.8-2.4); POTASSIUM,K 3.6 mmol/L (3.5-5.1); SODIUM,NA 148 mmol/L (136-145); TSH ULTRASENSITIVE 0.362 uIU/mL (0.358-3.74)
[2023-11-11 12:01] LABS: ACETAMINOPHEN 0 ug/ml (10-30); ANION GAP 14.6 mmol/L (5-15); ESTIMATED GFR 105 mL/min (>=60); ETHANOL BLOOD MEDICAL 379 mg/dL (0-3)
[2023-11-13 06:37] VITALS: BP 118/73; PULSE 89
== END 2023-11-11 11:20 ==
LOC: VM.ED 10:52
DX: F10.129 Alcohol abuse with intoxication, unspecified (principal); I10 Essential (primary) hypertension; Z91.030 Bee allergy status; Z88.4 Allergy status to anesthetic agent; Y90.8 Blood alcohol level of 240 mg/100 ml or more
CPT/HCPCS: 36415; 80053; 80143; 80179; 80305-QW; 80307; 81003; 82140; 83735; 84443; 85025; 86140; 99285

== ENCOUNTER 2024-02-12 17:41 | Emergency (ER) | payer MEDICAID ==
[2024-02-12 17:51] VITALS: BP 141/95; PULSE 97
== END 2024-02-12 18:22 ==
LOC: VM.ED 17:41
DX: F18.10 Inhalant abuse, uncomplicated (principal); I10 Essential (primary) hypertension; Z79.899 Other long term (current) drug therapy; Z88.4 Allergy status to anesthetic agent; Z91.030 Bee allergy status
CPT/HCPCS: 99283; 99284

== ENCOUNTER 2024-09-10 08:17 | Emergency (ER) | payer MEDICAID ==
[2024-09-10 08:41] VITALS: PULSE 92
[2024-09-10 08:44] LABS: BASOPHILS PERCENT AUTO 0.2 % (0.2-1.2); EOSINOPHILS PERCENT AUTO 0.1 % (0.0-4.0); HEMATOCRIT 42.3 % (40.0-52.0); HEMOGLOBIN 15.1 g/dL (14.0-18.0); IMMATURE GRAN ABSOLUTE AUTO 0.06 x10^3/uL (0.00-0.07); LYMPHOCYTES ABSOLUTE AUTO 1.4 x10^3/uL (1.0-4.8); LYMPHOCYTES PERCENT AUTO 9.6 % (25.0-50.0); MEAN CORPUSCULAR HEMOGLOBIN 32.1 pg (26.0-32.0); MEAN CORPUSCULAR HGB CONC 35.7 g/dL (32.0-36.0); MONOCYTES ABSOLUTE AUTO 0.8 x10^3/uL (0.0-0.8); MONOCYTES PERCENT AUTO 5.5 % (2.0-11.0); NEUTROPHILS ABSOLUTE AUTO 12.5 x10^3/uL (1.8-7.7); NEUTROPHILS PERCENT AUTO 84.2 % (50.0-80.0); PLATELET COUNT,PLT 209 x10^3/uL (130-400); WHITE BLOOD CELL COUNT,WBC 14.9 x10^3/uL (4.0-10.0)
[2024-09-10 08:59] LABS: A/G RATIO 1.37; ALANINE AMINOTRANSFERASE,ALT 20 U/L (16-63); ALBUMIN 4.8 g/dL (3.4-5.0); ALKALINE PHOSPHATASE 171 U/L (46-116); ASPARTATE AMNIOTRANSFERASE,AST 21 U/L (15-37); BILIRUBIN TOTAL 0.9 mg/dL (0.2-1.0); BLOOD UREA NITROGEN,BUN 20 mg/dL (7-18); CALCIUM 8.8 mg/dL (8.5-10.1); CARBON DIOXIDE,CO2 24 mmol/L (21-32); CHLORIDE,CL 97 mmol/L (98-107); CREATININE 1.5 mg/dL (0.70-1.30); EST CRCL DRUG DOSING (CG) 53.17 mL/min; GLUCOSE RANDOM 86 mg/dL (70-99); PROTEIN TOTAL,TP 8.3 g/dL (6.4-8.2); SODIUM,NA 135 mmol/L (136-145)
[2024-09-10 09:03] LABS: ESTIMATED GFR 56 mL/min (>=60); ETHANOL BLOOD MEDICAL < 3 mg/dL (0-3)
[2024-09-10] MEDS: Sodium Chloride 0.9% 1,000 ML IV ONE (09:51)
[2024-09-10 10:30] LABS: AMPHETAMINES SCREEN, URINE NEGATIVE (NEGATIVE); BARBITURATE SCREEN,URINE NEGATIVE (NEGATIVE); BENZODIAZEPINES SCREEN,URINE NEGATIVE (NEGATIVE); BUPRENORPHINE SCREEN,URINE NEGATIVE (NEGATIVE); COCAINE METABOLITES,URINE NEGATIVE (NEGATIVE); METHADONE SCREEN, URINE NEGATIVE (NEGATIVE); METHAMPHETAMINE SCREEN, URINE NEGATIVE (NEGATIVE); OXYCODONE SCREEN,URINE NEGATIVE (NEGATIVE); PCP SCREEN,URINE NEGATIVE (NEGATIVE); THC SCREEN,URINE 50 NG/ML NEGATIVE (NEGATIVE)
[2024-09-10 11:05] VITALS: BP 132/81
== END 2024-09-10 11:00 | disposition home or self-care (01) ==
LOC: SUPCPDRO 08:17 → VM.ED 08:17
DX: S02.2XXA Fracture of nasal bones, initial encounter for closed fracture (principal); G40.909 Epilepsy, unspecified, not intractable, without status epilepticus; S09.90XA Unspecified injury of head, initial encounter; E86.0 Dehydration; I10 Essential (primary) hypertension; E78.00 Pure hypercholesterolemia, unspecified; Z91.030 Bee allergy status; Z91.041 Radiographic dye allergy status; Z79.899 Other long term (current) drug therapy; X58.XXXA Exposure to other specified factors, initial encounter; Y93.89 Activity, other specified
CPT/HCPCS: 36415; 70450; 70486; 72125; 80053; 80305; 80307; 82947; 85025; 96361; 96365; 99285; J7030; Q2009; 99284